=== PATIENT | male | born 1965 | race Caucasian/White ===

== ENCOUNTER 2019-02-15 18:14 | Inpatient (IN) | payer BC ==
[~2019-02-15 18:14] MED LIST: ISOVUE-370 76%-LOCM 1 ML ONE
[2019-02-15 18:50] LABS: #Eosinphils 0.4 thou/uL (0.0-0.7); #Lymphocytes 1.5 thou/uL (1.20-3.40); #Monocytes 0.6 thou/uL (0.11-0.59); #Neutrophils 4.3 thou/uL (1.40-6.50); %Basophils 0.3 % (0.0-1.0); %Eosinophils 5.6 % (0.0-10.0); %Lymphocytes 21.6 % (21.0-51.0); %Monocytes 8.4 % (0.0-10.0); %Neutrophils 64.1 % (42.0-75.0); Hemoglobin 13.4 g/dL (14.0-18.0); Mean Corpuscular HGB CONC 33.9 g/dL (32.0-36.0); Mean Corpuscular Hemoglobin 30.9 pg (27.0-31.0); Mean Platelet Volume 6.3 fL (7.4-10.4); Platelet Count 327 thou/uL (130-400); RBC Distribution Width 11.5 % (11.5-14.5); Red Blood Cell (RBC) Count 4.33 mill/uL (4.70-6.10); White Blood Cell (WBC) Count 6.7 thou/uL (4.8-10.8)
[2019-02-15 19:12] LABS: ALT (SGPT) 17 U/L (8-55); AST (SGOT) 15 U/L (5-34); Albumin 4.7 g/dL (3.5-5.0); Alkaline Phosphatase 67 U/L (40-150); Anion Gap 13 mmol/L (10-20); BUN (Urea Nitrogen) 12 mg/dL (8.4-25.7); Bilirubin, Total 0.7 mg/dL (0.2-1.2); CK (CPK) 145 U/L (30-200); Calc. Creatinine Clearance 0 mL/min (70-130); Calcium 9.8 mg/dL (7.8-10.44); Carbon Dioxide 28 mmol/L (22-29); Chloride 99 mmol/L (98-107); Estimated GFR-MDRD 76; Glucose 128 mg/dL (70-105); Lipase 34 U/L (8-78); Protein, Total 7.7 g/dL (6.0-8.3); Sodium 136 mmol/L (136-145)
--- NOTE | 2019-02-15 19:20 | RAD ---
FRONTAL RADIOGRAPH CHEST: 02/15/19 COMPARISON: None. HISTORY: Chest pain and neck pain. FINDINGS: Midline sternotomy wires are present. No pneumothorax, pleural fluid, focal consolidation, or alveol ar edema. IMPRESSION: No acute findings. POS: RAMONA
--- NOTE | 2019-02-15 20:40 | CT ---
CTA Angio Chest W WO Con 02/15/2019 12:00 AM Indication: Neck pain radiating to the chest; shortness of breath and dizziness Technique: Multiple CTA images were obtained of the thorax with IV contrast. 3D reformatted images were constructed from the raw data. Comparison: None Findings: Pulmonary arteries: No central or segmental pulmonary embolus is evident. Heart and Great Vessels: Normal appearing. Lungs:There is a 4.7 cm spiculated right suprahilar mass inducing postobstructive atelectasis of the posterior segment of the right upper lobe. There is moderate emphysema. There are numerous enlarged lymph nodes within the mediastinum. There is an enlarged left tracheobronchial lymph node measuring 1 .3 cm. There is a 1.5 cm AP window lymph node. There is a 1.3 center prevascular lymph node. There is an left anterior mediastinal lymph node measuring 1.3 cm. There is a right paratracheal lymph node measuring 2.1 cm. There is prominent thickening involving the right mainstem bronchus. Pleural space: Clear. Upper Abdomen: There is a hypodense mass within the right mid kidney that is incompletely visualized and characterized. Osseous Structures: No acute fracture or subluxation demonstrated. There is scattered degenerative a nd osteoarthritic change present. Midline sternotomy changes. Impression: 1. No central or segmental pulmonary embolus. 2. Right suprahilar spiculated mass with postobstructive atelectasis of the posterior segment of the right upper lobe. There is extensive mediastinal lymphadenopathy suspicious for malignant lymph node spread. 3. Moderate emphysema 4. Right renal mass incompletely characterized. A follow-up nonemergent CT of the abdomen and pelvis utilizing renal mass protocol is recommended for further characterization.
[2019-02-15] MEDS ORDERED: Aspirin Chewable 81 MG TAB ONE (22:21)
[2019-02-16] MEDS ORDERED: Ondansetron PF 4 MG/2 ML Vial IVP PRN (00:34)
[2019-02-16] MEDS ORDERED: Acetaminophen 325 MG TAB PO PRN (00:34)
[2019-02-16] MEDS ORDERED: Ondansetron ODT 4 MG TAB SL PRN (00:34)
[2019-02-16 00:35] LABS: Troponin I 0.011 ng/mL (< 0.028)
[2019-02-16 00:37] VITALS: BMI 21.8
[2019-02-16] MEDS: Sodium Chloride 0.9% 1,000 ML IV SCH ×3 (01:43→12:54)
[2019-02-16 03:17] LABS: Troponin I Less than 0.010 ng/mL (< 0.028)
--- NOTE | 2019-02-16 11:05 | NM ---
EXAM: CARDIAC SPECT HISTORY: Chest pain TECHNIQUE: A myocardial perfusion scan was performed using the single isotope 1 day protocol with yogi hnetium 99m sestamibi. [10 mCi] was injected intravenously for the rest exam followed by 30 mCi for the stress study. Pharmacologic stress with Lexiscan was monitored and interpreted by [facility] FINDINGS: Homogeneous tracer distribution is seen in the myocardial segments on stress and rest image s without fixed or reversible defects. Gated SPECT LVEF: 77% Wall motion exam: Normal IMPRESSION: Normal myocardial perfusion scan
[2019-02-16] MEDS ORDERED: Lidocaine 4% PF 5 ML AMP NEB SCH (12:15)
[2019-02-16] MEDS ORDERED: Dexamethasone 10 MG in Sodium Chloride 0.9% 50 ML IVPB SCH (12:15)
[2019-02-16] MEDS: methylPREDNISolone Sod Succ 40 MG VIAL IVP SCH ×3 (12:55→23:17)
--- NOTE | 2019-02-16 13:15 | CON ---
DATE OF CONSULTATION: HISTORY OF PRESENT ILLNESS: He is a 53-year-old gentleman, who was brought to the hospital with chest pain, shortness of breath, dizziness, right-sided neck pain, right-sided face pain, swelling of the eye on right side behind the ear and veins that were bruised found on the chest, passing out during coughing. All this symptoms is much. He went to see his [facility] physician in [place]. He was referred to a distribution coordinator and received several rounds of antibiotics, Cipro, Zithromax. Bat Person at [facility] ordered a sleep study on him. X-ray was taken, which is read as normal. Has been coughing some blood since August, which has been streaking in nature. He has lost some weight. He has smoked half pack a day off and on for a period of time, but has not smoked for any recently. Denies prior history of TB, pneumonia, or bronchial asthma. In fact, the patient states he has been healthy. He has no reason to see any physician. Takes no medication. PAST MEDICAL HISTORY: Diabetes, hypertension. PAST SURGICAL HISTORY: He had an ASD repair, hernia repair now. MEDICATIONS: Recently started some medicine includin. Trelegy inhaler. 2. Crestor 10. ALLERGIES: NONE. 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 FAMILY HISTORY: Unremarkable. REVIEW OF SYSTEMS: Otherwise, 10-point negative. PHYSICAL EXAMINATION: GENERAL: The patient is in no acute distress. Appears slightly cushingoid. VITAL SIGNS: Saturations are 95% on room air, temperature 98, pulse 61, respiratory rate 16, blood pressure 108/64. CHEST: Decreased breath sounds with some minimal wheezing. On the right side, there is some anterior chest wall venous stranding consistent with an SVC syndrome. Left side is unremarkable. CARDIAC: Normal S1 and S2. No gallops. ABDOMEN: No masses. LABORATORY DATA: White count 6000, H and H of 13 and 39, platelet count is normal. Lytes are normal. Liver function normal. IMAGING DATA: His chest x-ray showed previous sternotomy and right apical infiltrate. His CAT scan confirmed rather extensive abnormality. Findings consistent with SVC syndrome, suprahilar mass, postobstructive atelectasis, posterior segment extensive mediastinal adenopathy, and a 4.7 cm right suprahilar mass. 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 PLAN: Diagnostic bronchoscopy performed start Decadron, neb treatment, steroids. We will follow. Consultation note, 70 minutes, 50% direct patient care. Job ID: [id number]
--- NOTE | 2019-02-16 14:39 | HP ---
CHIEF COMPLAINT: Chest pain. HISTORY OF PRESENT ILLNESS: This is a 53-year-old gentleman with history of COPD in the past, seen by a concrete paving machine operator in the past, had workup done partially, presented to the emergency room with complaint of chest pain. ER physician evaluated the patient and admitted to the hospital for possible cardiac etiology. Incidentally, found that the patient had CT scan confirmed lung mass, evidence of atelectasis, there is a renal mass noted. The patient underwent a stress test this morning, which has ruled out for cardiac etiology. PAST MEDICAL HISTORY: As above. PAST SURGICAL HISTORY: Negative. MEDICATIONS: None. SOCIAL HISTORY: Does not smoke or drink alcohol. He used to smoke heavily. 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 ALLERGIES: NKDA. REVIEW OF SYSTEMS: CONSTITUTIONAL: Fatigue present. HEENT: The patient has evidence of right-sided facial numbness. Initially, it was thought to be Aguirre palsy. PULMONARY: Shortness of breath present. CARDIOVASCULAR: As above. NEUROLOGIC: As above. All the other systems reviewed and negative. PHYSICAL EXAMINATION: GENERAL: The patient is alert and oriented x3. Appears to be in mild distress from chest discomfort. VITAL SIGNS: Temperature 98.3, pulse 64, respirations 16, oxygen saturation 95, blood pressure 104/61. HEENT: MICAH. Atraumatic. Right-sided facial weakness present. NECK: Supple, engorged veins present. LUNGS: Clear to auscultation. Chest shows evidence of engorged veins. CARDIOVASCULAR SYSTEM: S1 and S2 heard. ABDOMEN: Soft. Bowel sounds present. Nontender and nondistended. EXTREMITIES: No cyanosis or calf tenderness. CENTRAL NERVOUS SYSTEM: Nonfocal. LABORATORY WORK: WBC 6.7, hemoglobin 13.4, hematocrit 39.4. Chemistry shows sodium 136, potassium 4.0, chloride 99, glucose 128, calcium at 9.8, AST 15, ALT 17. Troponin was within normal limits at 0.010. EKG normal sinus rhythm. The patient underwent CTA shows no central segmental pulmonary embolus, right suprahilar spiculated mass with postobstructive atelectasis of the posterior segment of the right upper lobe. There is extensive mediastinal lymphadenopathy suspicious for malignant lymph node spread, moderate emphysema noted, right renal mass and completely characterized. A chest x-ray was obtained shows midline sternotomy wires are present. No pneumothorax, pleural fluid, focal consolidation, or alveolar edema. IMPRESSION: 1. 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 2. Possible renal mass, cyst versus other etiology. In the past, the patient had ultrasound of the kidney as per the patient and it was thought to be cyst. PLAN: 1. The patient will be hospitalized and admitted. 2. We will start the patient on IV steroids, Solu-Medrol to release symptoms. 3. I personally spoke to Oncology on-call, Dr. Aponte, recommended to place in the hospital for immediate lung biopsy and possible further treatment plans. 4. I consulted Dr. Mancia for pulmonology bronchoscopy. 5. Continue current therapy until the clinical prognosis or progress made, and old records obtained, family was at the bedside, discussed at length and explained. Job ID: [id number]
[2019-02-16] MEDS ORDERED: Lidocaine 2% PF 5 ML VIAL ONE (16:41)
[2019-02-16] MEDS ORDERED: Fentanyl 250 MCG/5 ML VIAL ONE (16:48)
[2019-02-16] MEDS ORDERED: Midazolam HCl 2 mg/2 ml Vial ONE ×2 (16:48→17:32)
[2019-02-16] MEDS ORDERED: Midazolam HCl 5 mg/5 ml Vial ONE (16:52)
[2019-02-16] MEDS ORDERED: Lidocaine 1% (PF) 30 ML VIAL ONE ×2 (16:53→17:48)
[2019-02-16] MEDS ORDERED: Fentanyl 100 MCG/2 ML VIAL ONE ×2 (16:53→17:32)
[2019-02-16] MEDS ORDERED: EPINEPHrine 1 MG/10 ML Abboject SYRINGE ONE (17:31)
[2019-02-16] MEDS ORDERED: Benzocaine 20% Spray 60 ML CAN ONE ×2 (17:33→17:37)
[2019-02-16] MEDS ORDERED: Lidocaine 2% Jelly 5 ML TUBE ONE ×2 (17:33→17:44)
[2019-02-16] MEDS ORDERED: Regadenoson 0.4 MG/5 ML SYRINGE ONE (17:35)
[2019-02-16] MEDS ORDERED: Lidocaine 4% Topical Sol 50 ML BOT ONE (17:37)
[2019-02-16] MEDS ORDERED: Lidocaine 1% w/Epinephrine 1:100K 20 ML VIAL ONE (17:48)
[2019-02-16] MEDS ORDERED: Lidocaine 2% w/Epinephrine 1:200K 20 ML VIAL ONE (17:48)
[2019-02-16] MEDS: Mometasone 100 MCG HFA INHALER INH SCH (19:11)
--- NOTE | 2019-02-16 20:06 | CON ---
DATE OF CONSULTATION: REASON FOR CONSULTATION: Lung mass. HISTORY OF PRESENT ILLNESS: Mr. Ramirez is a 53-year-old gentleman, who presented to the hospital with shortness of breath, dizziness, and chest pain. He also had right facial numbness, facial droop, and neck pain for the last several months. He has been seen by multiple providers including primary care, pulmonology, and ENT. He has been on multiple rounds of antibiotics. In the emergency room, a CT angio of the chest and thorax showed a 4.7 cm spiculated right suprahilar mass that was causing postobstructive atelectasis of the right upper lobe. There is mediastinal lymphadenopathy. There was an enlarged left tracheobronchial lymph node measuring 1.3 cm. There was a right paratracheal lymph node measuring 2.1 cm. There was a hypodense mass in the right kidney. The patient had an abdominal ultrasound several weeks ago, which felt that this was a cyst. The patient has dizziness, frequent cough with hemoptysis. He has passed out once at home during a coughing spell. He has a history of smoking for approximately 30 years, quit about 3 years ago. PAST MEDICAL HISTORY: 1. Diabetes. 2. Hypertension. 3. Skin cancer. PAST SURGICAL HISTORY: 1. ASD repair. 2. Hernia repair. 3. Skin lesion removal. ALLERGIES: NO KNOWN DRUG ALLERGIES. HOME MEDICATIONS: 1. Inhalers. 2. Rosuvastatin daily. FAMILY HISTORY: His uncle had lung cancer. His grandfather had liver cancer. SOCIAL HISTORY: , lives with his spouse. A 30 pack-year history of smoking, quit 3 years ago. Social drinker. No illicit drug use. 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 REVIEW OF SYSTEMS: A 10-point review of systems is negative except for noted in HPI. PHYSICAL EXAMINATION: VITAL SIGNS: Temperature 98.6, pulse is 76, respiratory rate 16, BP is 118/69, and he is 94% on room air. GENERAL: This is a well-developed, well-nourished male, in no acute distress. HEENT: Normocephalic and atraumatic. Pupils are equal and reactive to light. NECK: Supple. CV: Regular rate and rhythm. LUNGS: Clear anterior. ABDOMEN: Soft and nontender. Bowel sounds are positive. EXTREMITIES: No clubbing, cyanosis, or edema. SKIN: He has eczema-like rash on his face. HEMATOLOGIC: He has dilated vessels on his left chest. No petechiae or purpura. NEUROLOGIC: Positive for right facial droop. PSYCHIATRIC: He is alert, oriented, and appropriate. PERTINENT LABORATORY DATA AND X-RAYS: Current WBCs are 6.7, hemoglobin 13.4, hematocrit 39.4, platelet count 324,000, 64% neutrophils, and 21% lymphocytes. Sodium is 136, potassium 4.0, chloride 99, CO2 is 28, BUN is 12, creatinine 1.03 , calcium 9.8. Bilirubin 0.7, AST is 15, ALT is 17, alkaline phosphatase is 67. Creatine kinase is 145. Troponin is negative. Serum total protein 7.7, albumin 4.7, globulin 3.0, and lipase 34. Radiology per HPI. ASSESSMENT: Right lung mass with mediastinal lymphadenopathy and superior vena cava syndrome. DISCUSSION: The patient is having a bronchoscopy today. He has been started on steroids. We will get a CT of his abdomen and pelvis tomorrow. He has a history of smoking, so this certainly could be small cell carcinoma. He will likely receive his first cycle of chemotherapy on this admission. Case was discussed with Dr. Aponte, who will follow. Thank you for the consult. Job ID: [id number] [facility]ITALJose
[2019-02-16] MEDS: Rosuvastatin 10 MG TAB PO SCH (21:12)
[2019-02-16 22:55] LABS: #Lymphocytes 0.5 thou/uL (1.20-3.40); #Monocytes 0.3 thou/uL (0.11-0.59); #Neutrophils 14.6 thou/uL (1.40-6.50); %Basophils 0.1 % (0.0-1.0); %Eosinophils 0.1 % (0.0-10.0); %Monocytes 2.1 % (0.0-10.0); %Neutrophils 94.8 % (42.0-75.0); Hemoglobin 13.2 g/dL (14.0-18.0); Mean Corpuscular HGB CONC 32.9 g/dL (32.0-36.0); Mean Corpuscular Hemoglobin 29.7 pg (27.0-31.0); Mean Corpuscular Volume 90.2 fL (78.0-98.0); Mean Platelet Volume 6.2 fL (7.4-10.4); Platelet Count 314 thou/uL (130-400); RBC Distribution Width 11.6 % (11.5-14.5); Red Blood Cell (RBC) Count 4.46 mill/uL (4.70-6.10); White Blood Cell (WBC) Count 15.4 thou/uL (4.8-10.8)
--- NOTE | 2019-02-16 23:01 | RAD ---
EXAM: CHEST ONE VIEW HISTORY: Tachycardia post bronchoscopy. COMPARISON: CTA chest on 02/15/2019. FINDINGS: There is masslike density in the right suprahilar region in a paramediastinal location. This correspo nds to mass seen within the right suprahilar location on recent CT examination. There is also mild prominence in the left paratracheal region likely due to combination of vascular structures with mild ly prominent lymph nodes seen on recent CT. Cardiac silhouette and pulmonary vasculature are within normal limits. There is stable mild elevation of the right hemidiaphragm. Left lung is clear. No pleural effusion or pneumothorax is identified. Median sternotomy wires are present. IMPRESSION: 1. No acute cardiopulmonary process. 2. Right suprahilar mass with prominence of the left paramediastinal structures shown to represent en larged prevascular space lymph nodes and mediastinal fat as well as vasculature on recent CT exam. 3. No pneumothorax or pleural effusion. 4. Elevation right hemidiaphragm.
--- NOTE | 2019-02-16 23:20 | PDOC.EVN ---
Event Note - Event Note Event Note: Nursing called for something to help the patient sleep; Reviewed VS and patient has been tachycardic since bronchoscopy. Asymptomatic. Repeat CBC showed no anemia, WBC count elevated in the setting of steroids. Repeat CXR showed no pneumo or other acute process. Will give the patient Benadryl and continue to monitor HR.
[2019-02-16] MEDS: diphenhydrAMINE 25 MG CAP PO SCH (23:48)
--- NOTE | 2019-02-17 05:10 | CON ---
DATE OF CONSULTATION: REASON FOR CONSULT: Need for chemotherapy access. HISTORY OF PRESENT ILLNESS: Mr. Ramirez is a 53-year-old man with recent issues including cough with occasional hemoptysis and shortness of breath and swelling on the right side of his face and headaches and pressure behind his eye as well as some spider veins on his chest. He came in to get this checked, and the nurse practitioner who saw him ordered a CTA of the chest because she was worried that he might have a blood clot causing his problems, and he was found to have a right lung mass with narrowing of the superior vena cava. He underwent bronchoscopy today and the suspicion is that he has small cell carcinoma. Dr. Aponte is waiting on the preliminary pathology reports, but wants to start chemotherapy this weekend and has requested MediPort for that purpose. The patient is otherwise healthy and has not seen a doctor for any other reason in recent years. He did have a colonoscopy about a year ago that was okay. PAST MEDICAL HISTORY: ASD, repaired as a child. PAST SURGICAL HISTORY: ASD repair as a child and inguinal hernia repair. FAMILY HISTORY: Noncontributory, except for lung cancer in an uncle. REVIEW OF SYSTEMS: Ten system review of systems is negative except per HPI, and the patient states that he is feeling a little bit worse since he had his bronchoscopy. ALLERGIES: HE HAS NO KNOWN DRUG ALLERGIES. SOCIAL HISTORY: The patient did smoke up until recently. Drinks socially. Does not use illicit drugs. PHYSICAL EXAMINATION: VITAL SIGNS: Slightly tachycardic at 108, heart rate 98.1, respirations 12, 94% saturation on 2 L nasal cannula, and blood pressure 129/72. GENERAL: Reveals a tired-looking man in no acute distress. He is not flushed or toxic. He is not jaundiced or icteric. He has a slight puffiness around the right eye and some spider veins on his lower chest. NECK: Supple without lymphadenopathy or thyroid nodules. HEART: Regular in its rate and rhythm without murmurs, rubs, or gallops. LUNGS: Clear to auscultation bilaterally, but diminished on the right compared to the left. ABDOMEN: Soft and nondistended. Minimally tender in the epigastrium. No palpable masses or hernias. EXTREMITIES: Warm and well perfused without edema. NEUROLOGIC: No focal deficits. PSYCHIATRIC: Alert, oriented, and appropriate. LABORATORY DATA: White count is mildly elevated at 15, hematocrit 40, and platelets 314. Electrolytes and LFTs are unremarkable, and troponins are normal. CT images are reviewed and I agree with the written report. The patient has some narrowing of the superior vena cava in the area of the hilar adenopathy, but the SVC is patent. The stenosis is just below the junction of the innominate. The patient has a 4.7 cm spiculated right suprahilar mass with postobstructive atelectasis of the posterior segment of the right upper lobe, multiple mediastinal lymph nodes including the left tracheobronchial lymph node and the left anterior mediastinal lymph node, and an incidentally noted right renal mass. ASSESSMENT: Likely right lung cancer. There is some extrinsic compression of the superior vena cava, but it is patent. Dr. Aponte has requested a MediPort. This may need to be placed into the most superior portion of the superior vena cava near the junction of the innominate vein since the superior vena cava is narrow below this level. As long as this is acceptable, we will plan to proceed with MediPort tomorrow, and if Dr. Aponte rather defer the MediPort until the SVC is more widely patent then this can be deferred, but the MediPort should still be functional at that level. Inherent risks of MediPort treatment were discussed with the patient and his . These include, but are not limited to, bleeding, infection, risks of anesthesia, hemothorax, pneumothorax, and need for other procedures. They understand accept these risks and wished to proceed. He has been posted for the OR for tomorrow. Job ID: [id number]
[2019-02-17] MEDS: methylPREDNISolone Sod Succ 40 MG VIAL IVP SCH ×4 (05:36→23:50)
[2019-02-17] MEDS: Sodium Chloride 0.9% 1,000 ML IV SCH (06:19)
[2019-02-17] MEDS: Mometasone 100 MCG HFA INHALER INH SCH ×2 (08:14→19:18)
[2019-02-17] MEDS ORDERED: Azelastine 137 MCG/Spray 30 ML NS PRN (09:00)
--- NOTE | 2019-02-17 09:59 | PDOC.MOPN ---
Interval History: Pt feeling ok today, but c/o neck pain and mild SOB, off/on Oxygen while I was in the room. - Vital Signs Vital Signs: Vital Signs (12 hours) Temp Pulse Resp BP Pulse Ox 02/17/19 08:17 98.0 F 88 16 132/71 94 L 02/17/19 03:30 98.8 F 94 12 122/68 100 02/16/19 23:29 96 02/16/19 23:28 98 02/16/19 23:14 98.1 F 108 H 12 129/72 94 L Weight Admit Weight 152 lb Weight 152 lb - Physical Exam General: Alert, Oriented x3, Cooperative, No acute distress HEENT: EOMI Lungs: Clear to auscultation, Normal air movement Cardiovascular: Regular rate, Normal S1, Normal S2 Abdomen: Soft, No tenderness Skin: No breakdown Neurological: Cranial nerves 3-12 NL (chest wall venous engorgement from SVC syndrome) Psych/Mental Status: Mental status NL, Mood NL - Labs Result Diagrams: 02/16/19 22:50 02/15/19 18:41 Lab results: Laboratory Results - last 24 hr 02/16/19 22:50: WBC 15.4 H, RBC 4.46 L, Hgb 13.2 L, Hct 40.2 L, MCV 90.2, MCH 29.7, MCHC 32.9, RDW 11.6, Plt Count 314, MPV 6.2 L, Neutrophils % 94.8 H, Lymphocytes % 3.0 L, Monocytes % 2.1, Eosinophils % 0.1, Basophils % 0.1, Neutrophils # 14.6 H, Lymphocytes # 0.5 L, Monocytes # 0.3, Eosinophils # 0.0, Basophils # 0.0 A/P - Problem (1) SVC syndrome Current Visit: Yes Code(s): I87.1 - COMPRESSION OF VEIN Status: Acute - Plan Plan: SVC Syndrome from right lung mass and extensive mediastinal LAD, biopsy yesterday pending results f/u lung biopsy - spoke to path, should be ready Tuesday: SCLC vs NSCLC, less likely lymphoma plan to start chemo Tuesday through mid-line cath as mediport will be held until SVC syndrome resolves MRI-Brain CT-A/P w/con tomorrow as he just got contrast 36hr ago
--- NOTE | 2019-02-17 10:58 | PDOC.HOSPP ---
- Subjective Encounter Date: 02/17/19 Encounter Time: 10:56 Subjective: the patient is depressed, the steroid helpnig the facial swelling - Objective Vital Signs & Weight: Vital Signs (12 hours) Temp Pulse Resp BP Pulse Ox 02/17/19 08:17 98.0 F 88 16 132/71 94 L 02/17/19 03:30 98.8 F 94 12 122/68 100 02/16/19 23:29 96 02/16/19 23:28 98 02/16/19 23:14 98.1 F 108 H 12 129/72 94 L Weight Admit Weight 152 lb Weight 152 lb I&O: 02/16/19 02/17/19 02/18/19 06:59 06:59 06:59 Intake Total 471 1080 Balance 471 1080 Result Diagrams: 02/16/19 22:50 02/15/19 18:41 ROS - Medication Medications: Active Medications Generic Name Dose Route Start Last Admin Trade Name Freq PRN Reason Stop Dose Admin Albuterol/Ipratropium 3 ml 02/16/19 13:00 02/17/19 08:15 Duoneb NEB Not Given [id number] CORINNE Sodium Chloride 1,000 mls @ 50 mls/hr 02/16/19 12:15 02/17/19 06:19 Normal Saline 0.9% IV 1,000 mls .Q20H CORINNE Administration Methylprednisolone Sodium Succinate 40 mg 02/16/19 12:00 02/17/19 05:36 Solu-Medrol IVP 40 mg Q6HR CORINNE Administration Mometasone Furoate 1 puff 02/16/19 18:30 02/17/19 08:14 Asmanex Hfa 100 Mcg INH Not Given BID-RT CORINNE Rosuvastatin Calcium 10 mg 02/16/19 21:00 02/16/19 21:12 Crestor PO 10 mg HS CORINNE Administration - Exam NAD, awake alert, ill appearing Eye: PERRL, anicteric sclera, scleral icterus ENT: normocephalic atraumatic, no oropharyngeal lesions, moist mucosa, dry oral mucosa Neck: supple, symmetric, no JVD, no thyromegaly, no lymphadenopathy, no carotid bruit, JVD Heart: RRR, no murmur, no gallops, no rubs, normal peripheral pulses, irregular , diminshed peripheral pulses, murmur present, II/IV, III/IV Respiratory: CTAB, no wheezes, no rales, no ronchi, normal chest expansion, no tachypnea, normal percussion, rales, rhonchi, tachypneic, wheezes Gastrointestinal: soft, non-tender, non-distended, normal bowel sounds, no palpable masses, no hepatomegaly, no splenomegaly, no bruit, no guarding, no rigidity, tender to palpation, distended, diminished bowl sounds, voluntary guarding Hosp A/P (1) Depressed Code(s): F32.9 - MAJOR DEPRESSIVE DISORDER, SINGLE EPISODE, UNSPECIFIED Status : Acute Qualifiers: Depression Type: reactive depression Qualified Code(s): F32.9 - Major depressive disorder, single episode, unspecified (2) Lung mass Code(s): R91.8 - OTHER NONSPECIFIC ABNORMAL FINDING OF LUNG FIELD Status: Acute (3) SVC syndrome Code(s): I87.1 - COMPRESSION OF VEIN Status: Acute - Plan plan discussed w/ family, protective services social worker (add restoril and anti depresant), out of bed/ambulate, DVT proph w/lovenox
[2019-02-17] MEDS ORDERED: Gadobenate Dimeglumine 529 MG/1 ML (20ML VIAL) ONE (11:17)
--- NOTE | 2019-02-17 12:07 | EKG ---
Test Reason : Blood Pressure : / mmHG Vent. Rate : 080 BPM Atrial Rate : 080 BPM P-R Int : 134 ms QRS Dur : 078 ms QT Int : 364 ms P-R-T Axes : 043 045 059 degrees QTc Int : 419 ms Sinus rhythm with Premature atrial complexes Nonspecific ST and T wave abnormality Abnormal ECG Confirmed by SHAW DE LEON, DEBBIE ([id number]), food expeditor GUSTABO DOVE ([id number]) on 02/17/2019 12:06:52 PM Referred By: Confirmed By:DEBBIE SQUIRES MD
--- NOTE | 2019-02-17 12:08 | EKG ---
Test Reason : Blood Pressure : / mmHG Vent. Rate : 084 BPM Atrial Rate : 084 BPM P-R Int : 134 ms QRS Dur : 078 ms QT Int : 374 ms P-R-T Axes : 034 -18 063 degrees QTc Int : 441 ms Normal sinus rhythm RSR' or QR pattern in V1 suggests right ventricular conduction delay Nonspecific T wave abnormality Abnormal ECG #2 Confirmed by DEBBIE SQUIRES MD ([id number]), editor school photograph GUSTABO DOVE ([id number]) on 02/17/2019 12:08:12 PM Referred By: Confirmed By:DEBBIE SQUIRES MD
--- NOTE | 2019-02-17 13:14 | PRG ---
DATE OF SERVICE: 02/17/2019 SUBJECTIVE: This morning, he is still coughing some blood. He is still short of breath. OBJECTIVE: VITAL SIGNS: Saturations are 90% on room air, temperature 98, pulse 88, blood pressure 130/71. CHEST: Decreased breath sounds. CARDIAC: Normal S1 and S2. No gallops. ABDOMEN: No masses. IMPRESSION: Superior vena cava syndrome secondary to extensive mediastinal right lung cancer. Surprisingly, left mainstem bronchus had extensive tumor sitting in it. PLAN: Await pathology. Otherwise, continue steroids, neb treatments, and supportive care. We will follow. Job ID: [id number]
--- NOTE | 2019-02-17 14:14 | MRI ---
BRAIN MRI WITH AND WITHOUT CONTRAST: HISTORY: Lung cancer. Evaluate for staging/metastases. COMPARISON: None. FINDINGS: Gradient echo sequence: No hemorrhage. Calvarium: Appropriate T1 marrow signal intensity. Midline brain parenchyma: Unremarkable. Cerebrum:Cortical najera-white matter differentiation is preserved. With regards to the cerebrum, no si gnificant T2 or FLAIR white matter hyperintensities. There is T2 and FLAIR hyperintensity in the right cerebellar hemisphere. Ventricles: No evidence of hydrocephalus. Sinuses and mastoid air cells: Extensive paranasal sinus mucosal disease. Diffusion: Central arterial flow is maintained. Absent restricted diffusion. Postcontrast images: Extensive peripherally enhancing lesions predominantly in the right cerebrum and cerebellum, as follows: Right thalamus 0.7 cm, right frontal lobe, near the vertex 0.6 cm, right temporal lobe 0.7 cm, right cerebellar hemisphere 0.8 x 1.5 cm, medial inferior right cerebellar prasad sphere 1.0 x 0.5 cm, posterior medial left cerebellar hemisphere 0.9 cm. IMPRESSION: Multifocal intracranial metastases as described above. Transcribed Date/Time: 02/17/2019 2:45 PM
--- NOTE | 2019-02-17 17:21 | PDOC.GSPN ---
Surgery Progress Note: Subj - Subjective Narrative: Patient feels about the same. He is still waiting for his pathology report which is not expected to be back before Tuesday. Right eye and cheek are still slightly swollen. I will continue to follow along to see how he responds to chemotherapy. We should be able to place his Mediport before his next round of chemotherapy, assuming his cancer responds well to the chemotherapy and his SVC syndrome resolves. Surgery Progress Note: Obj - Vital signs Vital signs: Vital Signs - Most Recent Temp Pulse Resp BP Pulse Ox 98.0 F 95 18 136/79 96 02/17/19 16:00 02/17/19 16:00 02/17/19 16:00 02/17/19 16:00 02/17/19 16:00 Surgery Progress Note: Results - Labs Result Diagrams: 02/16/19 22:50 02/15/19 18:41
[2019-02-17] MEDS: Rosuvastatin 10 MG TAB PO SCH (20:24)
[2019-02-17] MEDS: Enoxaparin Sodium 30 MG/0.3 ML SYRINGE SC SCH (20:24)
[2019-02-17] MEDS: Temazepam 15 MG CAP PO PRN (21:26)
[2019-02-18] MEDS: methylPREDNISolone Sod Succ 40 MG VIAL IVP SCH (06:09)
[2019-02-18 06:11] LABS: #Lymphocytes 0.7 thou/uL (1.20-3.40); #Monocytes 0.2 thou/uL (0.11-0.59); #Neutrophils 12.4 thou/uL (1.40-6.50); %Lymphocytes 5.5 % (21.0-51.0); %Monocytes 1.5 % (0.0-10.0); Hemoglobin 12.7 g/dL (14.0-18.0); Mean Corpuscular HGB CONC 32.7 g/dL (32.0-36.0); Mean Corpuscular Volume 91.8 fL (78.0-98.0); Mean Platelet Volume 6.5 fL (7.4-10.4); Platelet Count 342 thou/uL (130-400); RBC Distribution Width 11.7 % (11.5-14.5); Red Blood Cell (RBC) Count 4.23 mill/uL (4.70-6.10); White Blood Cell (WBC) Count 13.4 thou/uL (4.8-10.8)
[2019-02-18 06:31] LABS: Anion Gap 14 mmol/L (10-20); BUN (Urea Nitrogen) 10 mg/dL (8.4-25.7); Calc. Creatinine Clearance 107 mL/min (70-130); Calcium 9.8 mg/dL (7.8-10.44); Carbon Dioxide 24 mmol/L (22-29); Chloride 103 mmol/L (98-107); Estimated GFR-MDRD Greater than 90; Glucose 151 mg/dL (70-105); Potassium 4.2 mmol/L (3.5-5.1); Sodium 137 mmol/L (136-145)
[2019-02-18] MEDS: Mometasone 100 MCG HFA INHALER INH SCH ×2 (06:54→19:07)
[2019-02-18] MEDS: Enoxaparin Sodium 30 MG/0.3 ML SYRINGE SC SCH ×2 (08:31→21:45)
--- NOTE | 2019-02-18 10:26 | CT ---
ABDOMEN CT WITH CONTRAST PELVIC CT WITH COTNRAST: HISTORY: Lung mass. Examination performed for staging. COMPARISON: None. FINDINGS: ABDOMEN CT: Chronic changes in lung bases. Normal heart size. Visualized aorta has a normal caliber. No periaortic fat stranding. Portal vein is patent. Gallbladder is unremarkable. Ill-defined hypodensity in the liver, adjacent to the falciform ligament measuring 1.6 x 1.4 cm is fe lt to represent a focal area of fatty infiltration. The remainder of the hepatic parenchyma is unrem arkable. The spleen, pancreas, and adrenal glands have appropriate attenuation and enhancement. No gastrohepatic, retrocrural, or periportal lymphadenopathy. Small umbilical hernia containing mesenteric fat. No mesenteric mass, lymphadenopathy, free air, or free fluid. Symmetric enhancement of the kidneys. Bilaterally, no obstructive uropathy. Indeterminate hypodensi ties in the left and right middle cortex measuring 1.2 and 1.8 cm respectively. Gastric mucosa, duodenum, and multiple normal-caliber small bowel loops are identified. Ileocecal ju nction is normal. Normal caliber appendix. Scattered fecal material in a nondistended, nondilated c olon. Mucosal thickening of the sigmoid colon may be due to inadequate distention. Diverticulosis, without evidence of diverticulitis. CT PELVIS: The urinary bladder is unremarkable. Mild hypertrophy of the prostate gland with calcifications. No pelvic mass, lymphadenopathy, free air, or free fluid. No lytic or blastic lesions within the osseous structures. IMPRESSION: 1. Ill-defined hypodensity in the hepatic parenchyma, near the falciform ligament may represent foca l fatty infiltration. No enhancing masses in the liver. 2. Hypodensities in the left and right renal cortex, incompletely evaluated. Consider nonemergent r enal ultrasound to assess for what are presumed to be bilateral renal cortical cysts. Conversely, a renal mass protocol CT or abdomen MRI could be performed. 3. Diverticulosis, without evidence of diverticulitis. There is mucosal thickening involving the si gmoid colon which is presumed to be due to inadequate distention. Colonoscopy if clinically warrante d. POS: OFF
--- NOTE | 2019-02-18 11:30 | PDOC.MOPN ---
Interval History: Pt feeling better today, off Oxygen. He has been walking with any OCAMPO or dizziness. He wants to leave the hospital to visit his mother, however I told him this would not be advisable in his current state. - Vital Signs Vital Signs: Vital Signs (12 hours) Temp Pulse Resp BP BP Pulse Ox 02/18/19 07:52 98.1 F 107 H 16 122/71 93 L 02/18/19 06:58 96 02/18/19 06:57 101 H 16 96 02/18/19 06:54 101 H 16 96 02/18/19 03:49 98.0 F 85 16 111/55 L 94 L 02/18/19 03:40 97 02/17/19 23:53 98.3 F 95 12 123/75 97 Weight Admit Weight 152 lb Weight 152 lb - Physical Exam General: Alert, Oriented x3, Cooperative, No acute distress Lungs: Other (decreased right-sided BS) Cardiovascular: Other (tachycardic) Abdomen: Soft, No tenderness Skin: No significant lesion (venous dilatation on chest wall) Neurological: Cranial nerves 3-12 NL Psych/Mental Status: Mental status NL, Mood NL - Labs Result Diagrams: 02/18/19 05:56 02/18/19 05:56 Lab results: Laboratory Results - last 24 hr 02/18/19 05:56: WBC 13.4 H, RBC 4.23 L, Hgb 12.7 L, Hct 38.8 L, MCV 91.8, MCH 30.0, MCHC 32.7, RDW 11.7, Plt Count 342, MPV 6.5 L, Neutrophils % 93.0 H, Lymphocytes % 5.5 L, Monocytes % 1.5, Eosinophils % 0.0, Basophils % 0.0, Neutrophils # 12.4 H, Lymphocytes # 0.7 L, Monocytes # 0.2, Eosinophils # 0.0, Basophils # 0.0 02/18/19 05:56: Sodium 137, Potassium 4.2, Chloride 103, Carbon Dioxide 24, Anion Gap 14, BUN 10, Creatinine 0.80, Estimated GFR (MDRD) Greater than 90, Glucose 151 H, Calcium 9.8 - Radiology Interpretation MRI - brain report reviewed by me Additional Comment: 6 brain mets mostly right-sided, most subcentimeter, largest 1.[address] - Ab/Pelvis report reviewed by me Additional Comment: Likely kidney cysts, no mets A/P - Problem (1) SVC syndrome Current Visit: Yes Code(s): I87.1 - COMPRESSION OF VEIN Status: Acute (2) Brain metastases Current Visit: Yes Code(s): C79.31 - SECONDARY MALIGNANT NEOPLASM OF BRAIN Status: Acute - Plan Plan: 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
--- NOTE | 2019-02-18 12:40 | PRG ---
DATE OF SERVICE: 02/18/2019 SUBJECTIVE: This morning, he is better. He is less short of breath. OBJECTIVE: VITAL SIGNS: His saturations are 93% on room air, respiratory rate 16, temperature 98, blood pressure 127/81. CHEST: Decreased breath sounds. Minimal rhonchi. CARDIAC: Normal S1 and S2. No gallops. ABDOMEN: No masses. his MRI of brain shows multifocal metastasis. IMPRESSION: Metastatic cancer, still awaiting path; chronic obstructive pulmonary disease; and superior vena cava syndrome. PLAN: Await final path. Start chemo as soon as possible. Prognosis remains guarded. Job ID: [id number]
--- NOTE | 2019-02-18 13:13 | PRG ---
DATE OF SERVICE: 02/18/2019 SUBJECTIVE: The patient is seen and examined at bedside. He feels somewhat better. His appetite is decreased. He lost probably 10 pounds in the last few weeks. OBJECTIVE: VITAL SIGNS: Blood pressure is 145/86, pulse is 102, temperature is 97.5, respiratory rate is 16, O2 saturation 96% on room air. HEENT: His head is atraumatic and normocephalic. Pupils are responding to light properly. Sclerae are nonicteric. Conjunctivae are pinkish. Oral mucosa is moist. NECK: Swollen. There are few areas of dilated veins on his neck, small venules mainly. LUNGS: Clear. HEART: S1 and S2 normal. No S3. No S4. Somewhat tachycardic. ABDOMEN: Soft, nontender, nondistended. Bowel sounds are present. No organomegaly. EXTREMITIES: No clubbing, cyanosis, or edema. NEUROLOGIC: He is alert and oriented x3. There are no any motor or sensory deficits. Cranial nerves are intact. LABORATORY DATA: White count of 13.4, platelet count is 342, hemoglobin 12.7, hematocrit 38.8. Normal electrolytes. Normal kidney function. Normal calcium. Three sets of troponins within normal limits. IMPRESSION: 1. Superior venous cava syndrome, acute. 2. Brain metastasis. 3. Right lung mass with extensive mediastinal lymphadenopathy, status post biopsy on the February 16. PLAN: Histopathology will be ready by Tuesday and Dr. Aponte will make decision what kind of chemotherapy he will need. Also, he will probably go through a brain radiation for his metastasis in the brain and radiation oncologist will be consulted. For now, we will continue his current regimen, which includes Decadron 4 mg twice a day, sertraline for his depression, temazepam p.r.n. for insomnia, and DuoNeb. Job ID: [id number]
[2019-02-18] MEDS: Sodium Chloride 0.9% 1,000 ML IV SCH (15:12)
[2019-02-18] MEDS: Dexamethasone 4 MG TAB PO SCH (21:43)
[2019-02-18] MEDS: Rosuvastatin 10 MG TAB PO SCH (21:43)
[2019-02-18] MEDS: diphenhydrAMINE 25 MG CAP PO SCH (21:43)
[2019-02-18] MEDS: Temazepam 15 MG CAP PO PRN (21:45)
[2019-02-19 06:26] LABS: #Lymphocytes 0.9 thou/uL (1.20-3.40); #Monocytes 0.6 thou/uL (0.11-0.59); #Neutrophils 9.8 thou/uL (1.40-6.50); %Eosinophils 0.2 % (0.0-10.0); %Lymphocytes 7.7 % (21.0-51.0); %Neutrophils 87.1 % (42.0-75.0); Mean Corpuscular HGB CONC 32.3 g/dL (32.0-36.0); Mean Corpuscular Hemoglobin 29.5 pg (27.0-31.0); Mean Corpuscular Volume 91.3 fL (78.0-98.0); Mean Platelet Volume 6.7 fL (7.4-10.4); Platelet Count 352 thou/uL (130-400); RBC Distribution Width 11.8 % (11.5-14.5); White Blood Cell (WBC) Count 11.3 thou/uL (4.8-10.8)
[2019-02-19 06:43] LABS: Anion Gap 15 mmol/L (10-20); BUN (Urea Nitrogen) 13 mg/dL (8.4-25.7); Calc. Creatinine Clearance 109 mL/min (70-130); Calcium 9.7 mg/dL (7.8-10.44); Carbon Dioxide 25 mmol/L (22-29); Chloride 101 mmol/L (98-107); Estimated GFR-MDRD Greater than 90; Glucose 111 mg/dL (70-105); Potassium 4.4 mmol/L (3.5-5.1); Sodium 137 mmol/L (136-145)
--- NOTE | 2019-02-19 07:19 | OP ---
DATE OF PROCEDURE: 02/16/2019 PROCEDURE PERFORMED: Bronchoscopy with biopsy. INDICATION: Left lower lung mass and extensive mediastinal mass, rule out bronchogenic carcinoma. POSTBRONCHOSCOPY DIAGNOSIS: Left lower lung mass and extensive mediastinal mass, rule out bronchogenic carcinoma. DESCRIPTION OF PROCEDURE: After informed consent, the patient received DuoNeb plus 4 mL of 4% lidocaine. The right nostril was prepped with lidocaine. 2 mg of Versed and 50 of fentanyl were given to the procedure. The flexible video bronchoscope Olympus was then passed over the left nostril and pharynx and hypopharynx, and vocal cords were visualized, which were unremarkable. Entering the trachea, this was normal, but cathleen was markedly blunted, thickened. Entering the right lung, there was marked thickening of the right mainstem bronchus. Right upper lobe bronchus was narrowed, particularly the posterior segment. No obvious endobronchial disease was seen. The bronchus intermedius and right lower lobe bronchus were otherwise unremarkable. To my surprise, entering the left mainstem bronchus, there was a large mass on the medial wall of the mainstem bronchus nodular friable. Rest of the left lower lung was otherwise unremarkable. The right lung and the left lung were both lavaged with normal saline. Multiple biopsies from the left mainstem bronchus with nodular friable mass were done. There was some minimal bleeding, which was controlled with epinephrine 60 mL of [id number]. The patient tolerated the procedure well. Washings sent for cytology. Biopsies were sent to pathology. Job ID: [id number]
[2019-02-19] MEDS: Mometasone 100 MCG HFA INHALER INH SCH ×2 (07:27→19:14)
[2019-02-19] MEDS: Enoxaparin Sodium 30 MG/0.3 ML SYRINGE SC SCH ×2 (08:10→20:46)
[2019-02-19] MEDS: Dexamethasone 4 MG TAB PO SCH ×2 (08:11→20:39)
--- NOTE | 2019-02-19 09:58 | PRG ---
DATE OF SERVICE: SUBJECTIVE: Tells me this morning, he is doing better, less short of breath, less cough, less pain. OBJECTIVE: VITAL SIGNS: Saturations are 93% on 2 L, respiratory rate 16, temperature 98, and blood pressure 130/76. CHEST: No wheezing or crackles. CARDIAC: Normal S1 and S2. No gallops or masses. 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 He is on Decadron, supportive care, neb treatments, awaiting path. DISPOSITION: As per Oncology. Job ID: [id number]
--- NOTE | 2019-02-19 11:05 | PDOC.HOSPP ---
- Subjective Encounter Date: 02/19/19 Encounter Time: 11:03 Subjective: 53 y/o made admitted for evaluation and treatment of right lung mass found on CT chest done for evaluation of chest pain. S/p bronchoscopy with biopsy. pathology is awaited. No new problem. - Objective Vital Signs & Weight: Vital Signs (12 hours) Temp Pulse Resp BP Pulse Ox 02/19/19 08:00 93 L 02/19/19 07:59 98.1 F 95 16 133/76 93 L 02/19/19 07:28 88 16 95 02/19/19 07:27 88 16 95 02/19/19 00:07 98.1 F 80 16 105/69 95 Weight Admit Weight 152 lb Weight 152 lb I&O: 02/18/19 02/19/19 02/20/19 06:59 06:59 06:59 Intake Total 950 Balance 950 Result Diagrams: 02/19/19 05:51 02/19/19 05:51 ROS - Medication Medications: Active Medications Generic Name Dose Route Start Last Admin Trade Name Freq PRN Reason Stop Dose Admin Albuterol/Ipratropium 3 ml 02/16/19 13:00 02/19/19 07:28 Duoneb NEB 3 ml [id number] CORINNE Administration Dexamethasone 4 mg 02/18/19 21:00 02/19/19 08:11 Decadron PO 4 mg BID CORINNE Administration Enoxaparin Sodium 30 mg 02/17/19 21:00 02/19/19 08:10 Lovenox SC 30 mg 0900,2100 CORINNE Administration Mometasone Furoate 1 puff 02/16/19 18:30 02/19/19 07:27 Asmanex Hfa 100 Mcg INH 1 puff BID-RT CORINNE Administration Rosuvastatin Calcium 10 mg 02/16/19 21:00 02/18/19 21:43 Crestor PO 10 mg HS CORINNE Administration Sertraline HCl 50 mg 02/18/19 09:00 02/19/19 08:11 Zoloft PO 50 mg DAILY CORINNE Administration Sodium Chloride 10 ml 02/17/19 21:00 02/19/19 08:11 Flush - Normal Saline IVF 10 ml Q12HR CORINNE Administration Sodium Chloride 10 ml 02/17/19 11:01 02/17/19 19:15 Flush - Normal Saline IVF 10 ml PRN PRN Administration Saline Flush Temazepam 15 mg 02/17/19 10:54 02/18/19 21:45 Restoril PO 15 mg HSPRN PRN Administration Insomnia - Exam awake alert Eye: PERRL, anicteric sclera ENT: normocephalic atraumatic ENT - other findings: mild left facial edema Neck: supple Heart: RRR Respiratory: no ronchi, normal chest expansion Respiratory - other findings: fair air entry bilaterally with some transmitted sound Gastrointestinal: soft, non-tender, non-distended, normal bowel sounds Extremities: no cyanosis Neurological: CN's grossly intact, no weakness Neurological - other findings: right facial numbness Musculoskeletal: normal tone, normal strength, no muscle wasting Psychiatric: normal affect, A&O x 3 Hosp A/P (1) COPD (chronic obstructive pulmonary disease) Status: Acute (2) Chest pain Code(s): R07.9 - CHEST PAIN, UNSPECIFIED Status: Acute (3) Brain metastases Code(s): C79.31 - SECONDARY MALIGNANT NEOPLASM OF BRAIN Status: Acute (4) Lung mass Code(s): R91.8 - OTHER NONSPECIFIC ABNORMAL FINDING OF LUNG FIELD Status: Acute (5) SVC syndrome Code(s): I87.1 - COMPRESSION OF VEIN Status: Acute - Plan Bronchodilators as needed Awaiting Lung biopsy pathology continue other supportive care
[2019-02-19] MEDS: Acetaminophen 325 MG TAB PO PRN (14:47)
[2019-02-19] MEDS: Lorazepam 1 MG TAB PO PRN (14:48)
[2019-02-19] MEDS: Temazepam 15 MG CAP PO PRN (20:39)
[2019-02-19] MEDS: Rosuvastatin 10 MG TAB PO SCH (20:39)
[2019-02-20 05:40] LABS: #Lymphocytes 0.9 thou/uL (1.20-3.40); #Monocytes 0.5 thou/uL (0.11-0.59); #Neutrophils 8.2 thou/uL (1.40-6.50); %Basophils 0.4 % (0.0-1.0); %Eosinophils 0.1 % (0.0-10.0); %Lymphocytes 9.5 % (21.0-51.0); %Monocytes 5.4 % (0.0-10.0); %Neutrophils 84.6 % (42.0-75.0); Hemoglobin 13.2 g/dL (14.0-18.0); Mean Corpuscular HGB CONC 33.5 g/dL (32.0-36.0); Mean Corpuscular Hemoglobin 30.5 pg (27.0-31.0); Mean Corpuscular Volume 90.9 fL (78.0-98.0); Mean Platelet Volume 6.7 fL (7.4-10.4); Platelet Count 352 thou/uL (130-400); RBC Distribution Width 11.6 % (11.5-14.5); Red Blood Cell (RBC) Count 4.32 mill/uL (4.70-6.10); White Blood Cell (WBC) Count 9.7 thou/uL (4.8-10.8)
[2019-02-20 06:00] LABS: Anion Gap 14 mmol/L (10-20); BUN (Urea Nitrogen) 11 mg/dL (8.4-25.7); Calc. Creatinine Clearance 112 mL/min (70-130); Calcium 9.5 mg/dL (7.8-10.44); Carbon Dioxide 25 mmol/L (22-29); Chloride 100 mmol/L (98-107); Estimated GFR-MDRD Greater than 90; Glucose 123 mg/dL (70-105); Sodium 135 mmol/L (136-145)
[2019-02-20] MEDS: Mometasone 100 MCG HFA INHALER INH SCH (07:06)
[2019-02-20] MEDS: Enoxaparin Sodium 30 MG/0.3 ML SYRINGE SC SCH ×2 (08:51→21:02)
[2019-02-20] MEDS: Dexamethasone 4 MG TAB PO SCH ×2 (08:51→21:02)
[2019-02-20] MEDS: Lorazepam 1 MG TAB PO PRN ×2 (09:04→13:11)
--- NOTE | 2019-02-20 09:23 | PRG ---
DATE OF SERVICE: 02/20/2019 SUBJECTIVE: This morning, he is better. No cough. No shortness of breath. No pain. OBJECTIVE: VITAL SIGNS: Temperature 98, pulse 104, respiratory rate 18, saturations are 98% on room air, and blood pressure 123/78. HEENT: Facial swelling. CHEST: Decreased breath sounds. No wheezing. CARDIAC: Normal S1 and S2. No gallops. ABDOMEN: No masses. LABORATORY DATA: Unremarkable. 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 Family wants to go to [facility]. Meantime, I would continue hina Pulido treatments, supportive care. Job ID: [id number]
--- NOTE | 2019-02-20 11:03 | CON ---
DATE OF CONSULTATION: 02/20/2019 REASON FOR CONSULTATION: Mr. 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 I was asked to see him to discuss his options with radiation. HISTORY OF PRESENT ILLNESS: Mr. Ramirez has been having difficulty off and on for the past five months. He has seen several physicians for this including primary care and pulmonology and ENT. His symptoms have mainly been of some tightness in the chest, productive cough, including hemoptysis, dizziness, and lightheadedness when he coughs, shortness of breath, and more recently some swelling in the face and some appearance of veins forming on his chest wall. He apparently saw a power barker operator several weeks ago, who recommended a sleep study. They had concerns that this might be heart-related issues because of the tightness in his chest, and he subsequently came to the emergency room at [facility] last Tuesday. There he underwent a CT angiogram, which showed a 4.7 cm right upper lobe lung mass. There was also ipsilateral and contralateral mediastinal adenopathy. There was narrowing of the superior vena cava. He was admitted to the hospital for workup and evaluation. He underwent a bronchoscopy by Dr. Mancia on 02/16/2019. There was marked thickening of the right mainstem bronchus. The right upper lobe bronchus was narrowed. No endobronchial lesion was identified. However, in the left mainstem bronchus, there was a mass on the medial wall of the mainstem bronchus, which was nodular and friable. Biopsies and brushings were obtained. Pathology recently returned as a moderately differentiated adenocarcinoma of the lung. This was TTF-1 positive. He has had an MRI of the brain, which showed six small lesions consistent with brain metastasis. He had a CT of the abdomen and pelvis. This showed a small lesion in the liver that was felt to be consistent with fatty infiltration rather than metastasis, although this cannot be totally excluded. There was no other evidence of metastatic disease. He has seen Dr. Aponte in Medical Oncology and the recommendation is to start chemotherapy. I have been asked to see the patient to discuss his options with radiation. Presently, he reports that his breathing is doing fairly well. He denies any orthopnea. He is up walking around. He does have some mild facial swelling. His appetite has been decreased, and he has recently lost 10 pounds. He has been having the hiccups while here in the hospital. His only pain has been the tightness in his chest and some in his neck. He has no other areas of pain. He has no headaches , nausea, vomiting, focal weakness, or numbness. He voices no other complaints. PAST MEDICAL HISTORY: 1. Hypertension. 2. History of skin cancers, treated with surgery. 3. Status post ASD repair in 2011. 4. Status post right inguinal hernia repair. MEDICATIONS: 1. DuoNeb nebulizers. 2. Decadron. 3. Lovenox. 4. Ativan. 5. Crestor. 6. Zoloft. ALLERGIES: NO KNOWN MEDICAL ALLERGIES. SOCIAL HISTORY: He lives near [place] with his . He has a 30 pack-year history of smoking, but has not smoked cigarettes for three years. He drinks two to three alcoholic beverages a couple of times per month. He denies any drug use. 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 FAMILY HISTORY: His mother is still living at age 72 with MS. His father is still living at age 75 and is healthy. He had a maternal grandfather, who from metastatic lung cancer. He had a paternal uncle, who in his late 60s from lung cancer. REVIEW OF SYSTEMS: Twelve-point review of systems is otherwise negative. PHYSICAL EXAMINATION: VITAL SIGNS: Height 5 feet 10 inches, weight 152 pounds. Blood pressure is 123 /78, pulse is 104, respirations are 18, temperature is 98.2, O2 saturation is 95% on room air. CONSTITUTIONAL: He is alert, oriented, and in no apparent distress. He is well developed and well nourished. Karnofsky performance status is in 80%. EYES: Pupils equal, round, and reactive to light. Extraocular movements are intact. ENT: Oral cavity and oropharynx normal without lesion or erythema. Palate elevates symmetrically. Gingiva is intact. He does have some mild facial swelling. NECK: There is some mild jugular venous distention. No preauricular, submandibular, cervical, or supraclavicular adenopathy. No thyromegaly. Larynx midline. LUNGS: Breathing nonlabored. Clear to auscultation and percussion. CARDIOVASCULAR: Heart, regular rate and rhythm without murmur. No lower extremity edema. BACK: No tenderness on fist percussion of the spine. CHEST: Does reveal increased venous markings across his chest wall. LYMPHATIC: No axillary inguinal adenopathy. ABDOMEN: Bowel sounds present. Soft, nontender, nondistended, without mass or hepatosplenomegaly. Liver percusses to normal size. SKIN: Without rash or purpura. NEUROLOGIC: Cranial nerves 2 through 12 grossly intact. Motor strength is 5/5 in both upper and lower extremities in all muscle groups tested. Reflexes are normal and symmetrical. Gait is not tested. LABORATORY DATA: Again, pathology has been interpreted as a moderately differentiated adenocarcinoma of the lung. This was TTF-1 positive. CBC today revealed a white blood cell count of 9700 with a hemoglobin of 13.2, hematocrit of 39.3, and platelet count of 352,000. Chemistry group showed a sodium of 135. His glucose was 123. His creatinine was normal at 0.76. RADIOLOGIC DATA: CT angiogram of the chest, CT of the abdomen and pelvis, and MRI of the brain were all personally reviewed. CT angiogram shows a 4.7 cm right upper lobe/suprahilar lung mass. There is ipsilateral and contralateral mediastinal adenopathy. He has narrowing of the superior vena cava, although contrast does go through the severe vena cava. It is markedly narrowed in the mid chest region. CT of the abdomen shows a lesion in the liver that was felt to be fatty infiltration rather than metastasis. There is no other evidence of liver lesion. MRI of the brain shows six lesions, the largest being 1 cm throughout the cerebrum and cerebellum consistent with brain metastasis. There is minimal vasogenic edema. ASSESSMENT: Mr. Ramirez is a 53-year-old gentleman with a clinical stage IV, T2 N3 M1 adenocarcinoma of the right upper lobe of the lung with early superior vena cava syndrome and brain metastasis. His brain metastases are asymptomatic. He appears to be fairly stable with the superior vena cava syndrome at this point, but does have some venous engorgement from that . PLAN: I had a long discussion with Mr. Ramirez and his regarding his diagnosis, prognosis, prognostic factors, and treatment options. We discussed his diagnosis of lung cancer, the pathology, and staging. I did explain that he has stage IV disease, which is going to be very difficult to cure. We did discuss the superior vena cava syndrome and the brain metastasis. Again, the brain metastasis at this point seemed to be asymptomatic. He is having some symptoms from the superior vena cava syndrome. I explained that this is a semi-emergent situation for treatment. I have discussed the case with Dr. Aponte, who has also seen the patient. Dr. Aponte preferences to start him on chemotherapy. I would think that we should also start him in the next couple of days on radiation therapy to the chest in hopes of palliating his severe vena cava syndrome. Dr. Aponte would hold off on immunotherapy until after the radiation is completed. Because he would be getting chemotherapy, we would have to hold on whole-brain radiation therapy now because of concerns from neurotoxicity. Hopefully, once he starts the immunotherapy, this will help treat his brain metastasis, but additionally once his chemo is completed, we could treat him with whole-brain radiation therapy. Obviously, if he develops symptoms from his brain metastasis sooner, we could treat his whole brain with radiation earlier. Nevertheless, I would not favor doing whole-brain radiation therapy concurrently with chemotherapy. I do favor initiating the chest radiation therapy as mentioned previously. The logistics of radiation as well as the benefits and risk of treatment were discussed. We would plan an approximate 3- to 4-week course of radiation. The simulation and daily treatment procedure were discussed. Side effects would include, but not be limited to skin reaction, fatigue, lower blood counts, difficulty or pain with swallowing, weight loss, possible radiation pneumonitis, possible stricture of the esophagus, and rarely possible damage to any other structure, which receives radiation therapy. I did explain that if we give this concurrently with chemotherapy that this may increase his esophagitis symptoms. This would necessitate us going a little slower and more conventional with the radiation therapy than we might otherwise do. I did discuss with Dr. Aponte, the possibility of doing a short course of radiation to therapy to the chest and brain prior to initiating chemotherapy, but he did not favor waiting on the chemotherapy. All of this was discussed with Mr. Ramirez and his . Presently, we are in somewhat of a holding pattern. The patient and his are insistent that he be transferred to [facility] for evaluation. I am not certain if they would do an inpatient transfer. This is being worked on by the hospital team. If they do not do an inpatient transfer, I would be uncomfortable with him being discharged and see in [facility] as an outpatient as this may take several weeks for him to get an appointment. Given his superior vena cava syndrome, I think it maybe somewhat risky to wait several weeks to initiating any treatment. My preference would be to initiate treatment within the next several days. The patient and his do understand that. We will wait and see what happens in regard to [facility] and what Mr. Ramirez wants to do in terms of the radiation. If he decides to seek treatment here, then we will try to get that initiated within the next couple of days. Thank you for this interesting consultation. ADDENDUM: It is my understanding that inpatient transfer to [facility] was declined by [facility]. He is starting chemotherapy today. I recommended that patient start radiation therapy tomorrow and he is agreeable. He will likely try to get an opinion from [facility] as an outpatient. Job ID: [id number] MTDD
--- NOTE | 2019-02-20 14:30 | PDOC.MOPN ---
Interval History: Complains of hiccups - Vital Signs Vital Signs: Vital Signs (12 hours) Temp Pulse Resp BP BP Pulse Ox 02/20/19 13:13 84 16 02/20/19 08:25 98.2 F 104 H 18 123/78 95 02/20/19 08:00 95 02/20/19 06:56 80 16 02/20/19 04:24 98.2 F 76 16 132/65 95 Weight Admit Weight 152 lb Weight 152 lb - Physical Exam General: Alert, Oriented x3, No acute distress HEENT: Atraumatic, PERRLA, EOMI, Mucous membr. moist/pink Lungs: Clear to auscultation, Normal air movement Cardiovascular: Regular rate, Normal S1, Normal S2, No murmurs, Gallops, Rubs Abdomen: Normal bowel sounds, Soft, No tenderness, No hepatospenomegaly, No masses Extremities: No clubbing, No cyanosis, No edema, Normal pulses, No tenderness/ swelling Neurological: Normal gait, Normal speech, Strength at 5/5 X4 ext, Normal tone, Sensation intact, Reflexes 2+ - Labs Result Diagrams: 02/20/19 05:17 02/20/19 05:17 Lab results: Laboratory Results - last 24 hr 02/20/19 05:17: WBC 9.7, RBC 4.32 L, Hgb 13.2 L, Hct 39.3 L, MCV 90.9, MCH 30.5 , MCHC 33.5, RDW 11.6, Plt Count 352, MPV 6.7 L, Neutrophils % 84.6 H, Lymphocytes % 9.5 L, Monocytes % 5.4, Eosinophils % 0.1, Basophils % 0.4, Neutrophils # 8.2 H, Lymphocytes # 0.9 L, Monocytes # 0.5, Eosinophils # 0.0, Basophils # 0.0 02/20/19 05:17: Sodium 135 L, Potassium 4.0, Chloride 100, Carbon Dioxide 25, Anion Gap 14, BUN 11, Creatinine 0.76, Estimated GFR (MDRD) Greater than 90, Glucose 123 H, Calcium 9.5 Status: lab reviewed by me A/P - Problem (1) Adenocarcinoma of lung Current Visit: Yes Code(s): C34.90 - MALIGNANT NEOPLASM OF UNSP PART OF UNSP BRONCHUS OR LUNG Status: Acute (2) Brain metastases Current Visit: Yes Code(s): C79.31 - SECONDARY MALIGNANT NEOPLASM OF BRAIN Status: Acute (3) SVC syndrome Current Visit: Yes Code(s): I87.1 - COMPRESSION OF VEIN Status: Acute - Plan Plan: [facility] declined transfer as not higher level of care Plan to start Carboplatin/Alimta today XRT per Dr. Moore.
[2019-02-20] MEDS ORDERED: SODIUM CHLORIDE 0.9% IVPB SCH ×3 (15:45→19:15)
[2019-02-20] MEDS ORDERED: Dexamethasone 10 MG in Sodium Chloride 0.9% 50 ML IVPB SCH (15:45)
[2019-02-20] MEDS ORDERED: Palonosetron HCl 0.25 MG in Sodium Chloride 0.9% 50 ML IVPB SCH (15:45)
[2019-02-20] MEDS ORDERED: ETOPOSIDE IVPB SCH (15:45)
[2019-02-20] MEDS ORDERED: CARBOPLATIN IVPB SCH ×2 (15:45→19:15)
[2019-02-20 15:47] LABS: ALT (SGPT) 19 U/L (8-55); AST (SGOT) 14 U/L (5-34); Albumin 4.4 g/dL (3.5-5.0); Alkaline Phosphatase 59 U/L (40-150); Anion Gap 13 mmol/L (10-20); BUN (Urea Nitrogen) 10 mg/dL (8.4-25.7); Bilirubin, Total 0.4 mg/dL (0.2-1.2); Calc. Creatinine Clearance 112 mL/min (70-130); Calcium 9.6 mg/dL (7.8-10.44); Carbon Dioxide 27 mmol/L (22-29); Chloride 99 mmol/L (98-107); Estimated GFR-MDRD Greater than 90; Globulin 2.9 g/dL (2.4-3.5); Glucose 120 mg/dL (70-105); Potassium 4.1 mmol/L (3.5-5.1); Protein, Total 7.3 g/dL (6.0-8.3); Sodium 135 mmol/L (136-145); Uric Acid 4.3 mg/dL (3.5-7.2)
[2019-02-20 16:06] LABS: T4 7.9 ug/dL (4.87-11.72); Thyroid Stimulating Hormone 0.8225 uIU/mL (0.35-4.94)
--- NOTE | 2019-02-20 18:10 | PDOC.HOSPP ---
- Subjective Encounter Date: 02/20/19 Encounter Time: 08:09 Subjective: 53 y/o made admitted for evaluation and treatment of right lung mass found on CT chest done for evaluation of chest pain. S/p bronchoscopy with biopsy with pathology showing lung adenocarcinoma. Patient had requested transfer to [facility] and bed avialability is awaited. No new problem. - Objective Vital Signs & Weight: Vital Signs (12 hours) Temp Pulse Resp BP Pulse Ox 02/20/19 13:13 84 16 02/20/19 08:25 98.2 F 104 H 18 123/78 95 02/20/19 08:00 95 02/20/19 06:56 80 16 Weight Admit Weight 152 lb Weight 152 lb I&O: 02/19/19 02/20/19 02/21/19 06:59 06:59 06:59 Intake Total 950 Balance 950 Result Diagrams: 02/20/19 05:17 02/20/19 15:11 Hospitalist ROS - Medication Medications: Active Medications Generic Name Dose Route Start Last Admin Trade Name Freq PRN Reason Stop Dose Admin Acetaminophen 650 mg 02/19/19 14:41 02/19/19 14:47 Tylenol PO 650 mg Q6H PRN Administration Headache/Fever or Pain Albuterol/Ipratropium 3 ml 02/16/19 13:00 02/20/19 13:13 Duoneb NEB 3 ml [id number] CORINNE Administration Dexamethasone 4 mg 02/18/19 21:00 02/20/19 08:51 Decadron PO 4 mg BID CORINNE Administration Enoxaparin Sodium 30 mg 02/17/19 21:00 02/20/19 08:51 Lovenox SC 30 mg 0900,2100 CORINNE Administration Lorazepam 1 mg 02/17/19 10:54 02/20/19 13:11 Ativan PO 1 mg Q4H PRN Administration Anxiety/Agitation Rosuvastatin Calcium 10 mg 02/16/19 21:00 02/19/19 20:39 Crestor PO 10 mg HS CORINNE Administration Sertraline HCl 50 mg 02/18/19 09:00 02/20/19 08:51 Zoloft PO 50 mg DAILY CORINNE Administration Sodium Chloride 10 ml 02/17/19 21:00 02/20/19 08:51 Flush - Normal Saline IVF 10 ml Q12HR CORINNE Administration Sodium Chloride 10 ml 02/17/19 11:01 02/17/19 19:15 Flush - Normal Saline IVF 10 ml PRN PRN Administration Saline Flush Temazepam 15 mg 02/17/19 10:54 02/19/19 20:39 Restoril PO 15 mg HSPRN PRN Administration Insomnia - Exam General Appearance: awake alert Eye: anicteric sclera ENT: normocephalic atraumatic ENT - other findings: mild right facilal edema Neck - other findings: neck vein engorment noted Heart: RRR Respiratory: no wheezes, no ronchi, normal chest expansion, no tachypnea Respiratory - other findings: fair air entry bilaterally Gastrointestinal: soft, non-tender, non-distended, normal bowel sounds Extremities: no cyanosis, no edema Neurological: CN's grossly intact, no focal deficits Psychiatric: normal affect, A&O x 3 Hosp A/P (1) Adenocarcinoma of lung Code(s): C34.90 - MALIGNANT NEOPLASM OF UNSP PART OF UNSP BRONCHUS OR LUNG Status: Acute (2) SVC syndrome Code(s): I87.1 - COMPRESSION OF VEIN Status: Acute (3) Brain metastases Code(s): C79.31 - SECONDARY MALIGNANT NEOPLASM OF BRAIN Status: Acute (4) COPD (chronic obstructive pulmonary disease) Status: Acute (5) Chest pain Code(s): R07.9 - CHEST PAIN, UNSPECIFIED Status: Acute (6) Lung mass Code(s): R91.8 - OTHER NONSPECIFIC ABNORMAL FINDING OF LUNG FIELD Status: Acute - Plan Cancer treatment planned here while awaiting for transfer to [facility] Bronchodilators as needed continue other supportive care
[2019-02-20] MEDS: Rosuvastatin 10 MG TAB PO SCH (21:02)
[2019-02-20] MEDS: Baclofen 10 MG TAB PO PRN (23:45)
[2019-02-21] MEDS: ETOPOSIDE IVPB SCH ×2 (01:48→23:54)
[2019-02-21] MEDS: SODIUM CHLORIDE 0.9% IVPB SCH ×2 (01:48→23:54)
[2019-02-21 07:28] LABS: #Lymphocytes 0.9 thou/uL (1.20-3.40); #Monocytes 0.4 thou/uL (0.11-0.59); #Neutrophils 8.3 thou/uL (1.40-6.50); %Basophils 0.4 % (0.0-1.0); %Eosinophils 0.1 % (0.0-10.0); %Lymphocytes 9.2 % (21.0-51.0); %Monocytes 4.3 % (0.0-10.0); Hemoglobin 14.4 g/dL (14.0-18.0); Mean Corpuscular HGB CONC 33.4 g/dL (32.0-36.0); Mean Corpuscular Hemoglobin 30.6 pg (27.0-31.0); Mean Corpuscular Volume 91.7 fL (78.0-98.0); Mean Platelet Volume 6.2 fL (7.4-10.4); Platelet Count 391 thou/uL (130-400); RBC Distribution Width 11.5 % (11.5-14.5); White Blood Cell (WBC) Count 9.6 thou/uL (4.8-10.8)
[2019-02-21 07:46] LABS: Anion Gap 13 mmol/L (10-20); BUN (Urea Nitrogen) 10 mg/dL (8.4-25.7); Calc. Creatinine Clearance 103 mL/min (70-130); Carbon Dioxide 29 mmol/L (22-29); Chloride 102 mmol/L (98-107); Estimated GFR-MDRD Greater than 90; Glucose 129 mg/dL (70-105); Sodium 139 mmol/L (136-145)
--- NOTE | 2019-02-21 08:27 | PDOC.HOSPP ---
- Subjective Encounter Date: 02/21/19 Encounter Time: 08:26 Subjective: Seen and examined. No new problem. Started on Chemotherapy yesterday. Denied nausea, vomiting or fever. - Objective Vital Signs & Weight: Vital Signs (12 hours) Temp Pulse Resp BP BP Pulse Ox 02/21/19 08:20 82 20 97 02/21/19 07:06 97.7 F 78 16 132/72 94 L 02/21/19 03:07 97.6 F 83 16 143/89 H 95 02/20/19 23:51 99.0 F 75 16 115/61 95 Weight Admit Weight 152 lb Weight 152 lb Result Diagrams: 02/21/19 07:16 02/21/19 07:16 Hospitalist ROS - Medication Medications: Active Medications Generic Name Dose Route Start Last Admin Trade Name Freq PRN Reason Stop Dose Admin Acetaminophen 650 mg 02/19/19 14:41 02/19/19 14:47 Tylenol PO 650 mg Q6H PRN Administration Headache/Fever or Pain Albuterol/Ipratropium 3 ml 02/16/19 13:00 02/21/19 08:20 Duoneb NEB 3 ml [id number] CORINNE Administration Baclofen 5 mg 02/20/19 22:25 02/20/19 23:45 Lioresal PO 5 mg TID PRN Administration Hiccups Dexamethasone 4 mg 02/18/19 21:00 02/20/19 21:02 Decadron PO 4 mg BID CORINNE Administration Enoxaparin Sodium 30 mg 02/17/19 21:00 02/20/19 21:02 Lovenox SC 30 mg 0900,2100 CORINNE Administration Etoposide 186 mg/ Sodium 509.3 mls @ 509.3 mls/hr 02/21/19 01:00 02/21/19 01: 48 Chloride IVPB 02/23/19 12:00 509.3 mls WILLCALL CORINNE Administration Lorazepam 1 mg 02/17/19 10:54 02/20/19 13:11 Ativan PO 1 mg Q4H PRN Administration Anxiety/Agitation Rosuvastatin Calcium 10 mg 02/16/19 21:00 02/20/19 21:02 Crestor PO 10 mg HS CORINNE Administration Sertraline HCl 50 mg 02/18/19 09:00 02/20/19 08:51 Zoloft PO 50 mg DAILY CORINNE Administration Sodium Chloride 10 ml 02/17/19 21:00 02/20/19 21:03 Flush - Normal Saline IVF 10 ml Q12HR CORINNE Administration Sodium Chloride 10 ml 02/17/19 11:01 02/17/19 19:15 Flush - Normal Saline IVF 10 ml PRN PRN Administration Saline Flush Temazepam 15 mg 02/17/19 10:54 02/19/19 20:39 Restoril PO 15 mg HSPRN PRN Administration Insomnia - Exam General Appearance: awake alert Eye: anicteric sclera ENT: normocephalic atraumatic Neck: supple Heart: RRR Respiratory: no wheezes, no ronchi, no tachypnea Respiratory - other findings: good air entry bilaterally with some transmitted sound Gastrointestinal: soft, non-tender, non-distended, normal bowel sounds Extremities: no cyanosis, no edema Neurological: CN's grossly intact, no weakness, no focal deficits Psychiatric: normal affect, A&O x 3 Hosp A/P (1) Adenocarcinoma of lung Code(s): C34.90 - MALIGNANT NEOPLASM OF UNSP PART OF UNSP BRONCHUS OR LUNG Status: Acute (2) SVC syndrome Code(s): I87.1 - COMPRESSION OF VEIN Status: Acute (3) Brain metastases Code(s): C79.31 - SECONDARY MALIGNANT NEOPLASM OF BRAIN Status: Acute (4) COPD (chronic obstructive pulmonary disease) Status: Acute (5) Chest pain Code(s): R07.9 - CHEST PAIN, UNSPECIFIED Status: Acute (6) Lung mass Code(s): R91.8 - OTHER NONSPECIFIC ABNORMAL FINDING OF LUNG FIELD Status: Acute - Plan Continue steroid for brain mets Monitor CMP and CBC in view of chemotherapy commencement Bronchodilators as needed continue other supportive care
[2019-02-21] MEDS: Lorazepam 1 MG TAB PO PRN ×3 (08:32→17:00)
[2019-02-21] MEDS: Dexamethasone 4 MG TAB PO SCH ×2 (08:32→20:01)
[2019-02-21] MEDS: Enoxaparin Sodium 30 MG/0.3 ML SYRINGE SC SCH ×2 (08:33→20:01)
[2019-02-21] MEDS ORDERED: Cyanocobalamin 1000 MCG/ML VIAL SC SCH (09:15)
--- NOTE | 2019-02-21 09:33 | PRG ---
DATE OF SERVICE: 02/21/2019 SUBJECTIVE: This morning, he is awake, alert, and responsive. He is status post chemo. OBJECTIVE: VITAL SIGNS: Temperature 97, pulse 82, respiratory rate 16, saturations 97% on room air, blood pressure 132/72. CHEST: Decreased breath sounds in right lung. Left unremarkable. CARDIAC: Normal S1, S2. No gallops. ABDOMEN: No masses. IMPRESSION: Metastatic adenocarcinoma, status post chemotherapy. PLAN: Continue present chemotherapy, schedule for radiation. Disposition as per Oncology. Job ID: [id number]
[2019-02-21] MEDS: Folic Acid 1 MG TAB PO SCH (10:33)
[2019-02-21] MEDS: Baclofen 10 MG TAB PO PRN ×2 (12:29→20:30)
--- NOTE | 2019-02-21 13:41 | PDOC.MOPN ---
Interval History: Pt feeling ok today. Tolerated chemo well yesterday. C1D2 today, will receive VP16. Due for XRT simulation today. - Vital Signs Vital Signs: Vital Signs (12 hours) Temp Pulse Resp BP BP Pulse Ox 02/21/19 08:20 82 20 97 02/21/19 08:00 94 L 02/21/19 07:06 97.7 F 78 16 132/72 94 L 02/21/19 03:07 97.6 F 83 16 143/89 H 95 Weight Admit Weight 152 lb Weight 152 lb - Physical Exam General: Alert, Oriented x3, Cooperative, No acute distress HEENT: EOMI Lungs: Other (non-labored) Cardiovascular: Regular rate, Normal S1 Abdomen: Soft, No tenderness Neurological: Cranial nerves 3-12 NL Psych/Mental Status: Mental status NL, Mood NL - Labs Result Diagrams: 02/21/19 07:16 02/21/19 07:16 Lab results: Laboratory Results - last 24 hr 02/21/19 07:16: WBC 9.6, RBC 4.70, Hgb 14.4, Hct 43.1, MCV 91.7, MCH 30.6, MCHC 33.4, RDW 11.5, Plt Count 391, MPV 6.2 L, Neutrophils % 86.0 H, Lymphocytes % 9.2 L, Monocytes % 4.3, Eosinophils % 0.1, Basophils % 0.4, Neutrophils # 8.3 H , Lymphocytes # 0.9 L, Monocytes # 0.4, Eosinophils # 0.0, Basophils # 0.0 02/21/19 07:16: Sodium 139, Potassium 5.0, Chloride 102, Carbon Dioxide 29, Anion Gap 13, BUN 10, Creatinine 0.83, Estimated GFR (MDRD) Greater than 90, Glucose 129 H, Calcium 10.0 02/20/19 21:34: Lactate Dehydrogenase 148 02/20/19 21:34: Uric Acid 4.2 02/20/19 15:11: Thyroxine (T4) 7.9, TSH 3rd Generation 0.8225 02/20/19 15:11: Lactate Dehydrogenase 158 02/20/19 15:11: Sodium 135 L, Potassium 4.1, Chloride 99, Carbon Dioxide 27, Anion Gap 13, BUN 10, Creatinine 0.76, Estimated GFR (MDRD) Greater than 90, Glucose 120 H, Uric Acid 4.3, Calcium 9.6, Total Bilirubin 0.4, AST 14, ALT 19, Alkaline Phosphatase 59, Serum Total Protein 7.3, Albumin 4.4, Globulin 2.9, Albumin/Globulin Ratio 1.5 A/P - Problem (1) SVC syndrome Current Visit: Yes Code(s): I87.1 - COMPRESSION OF VEIN Status: Acute (2) Brain metastases Current Visit: Yes Code(s): C79.31 - SECONDARY MALIGNANT NEOPLASM OF BRAIN Status: Acute - Plan Plan: C1D2 of [id number]: SVC Syndrome from Adencoarcinoma of Right lung with extensive mediastinal LAD and multiple brain mets f/u lung panel on lung biopsy from 02/16/2019 Cont Carboplatin + VP16 through mid-line cath as mediport will be held until SVC syndrome resolves XRT simulation today: plan CCRT and then WBRT after chemotherapy as he is currently asymptomatic. Will likely change chemo to Carbo + Alimta + Keytruda after XRT
[2019-02-21] MEDS: Rosuvastatin 10 MG TAB PO SCH (20:01)
[2019-02-22 06:30] LABS: #Monocytes 0.6 thou/uL (0.11-0.59); #Neutrophils 8.3 thou/uL (1.40-6.50); %Basophils 0.1 % (0.0-1.0); %Eosinophils 0.2 % (0.0-10.0); %Lymphocytes 10.2 % (21.0-51.0); %Monocytes 5.6 % (0.0-10.0); %Neutrophils 83.9 % (42.0-75.0); Hemoglobin 13.8 g/dL (14.0-18.0); Mean Corpuscular HGB CONC 34.2 g/dL (32.0-36.0); Mean Corpuscular Hemoglobin 30.9 pg (27.0-31.0); Mean Corpuscular Volume 90.3 fL (78.0-98.0); Mean Platelet Volume 6.1 fL (7.4-10.4); Platelet Count 374 thou/uL (130-400); RBC Distribution Width 11.5 % (11.5-14.5); Red Blood Cell (RBC) Count 4.48 mill/uL (4.70-6.10); White Blood Cell (WBC) Count 9.9 thou/uL (4.8-10.8)
[2019-02-22 06:47] LABS: Anion Gap 12 mmol/L (10-20); BUN (Urea Nitrogen) 13 mg/dL (8.4-25.7); Calc. Creatinine Clearance 117 mL/min (70-130); Calcium 9.3 mg/dL (7.8-10.44); Carbon Dioxide 26 mmol/L (22-29); Chloride 99 mmol/L (98-107); Estimated GFR-MDRD Greater than 90; Glucose 109 mg/dL (70-105); Sodium 133 mmol/L (136-145)
--- NOTE | 2019-02-22 07:59 | PDOC.HOSPP ---
- Subjective Encounter Date: 02/22/19 Encounter Time: 07:55 Subjective: Seen and examined. 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 Started on Chemotherapy on 02/20 and radiatotherapy on 02/21. Denied nausea, vomiting or fever. - Objective Vital Signs & Weight: Vital Signs (12 hours) Temp Pulse Resp BP Pulse Ox 02/22/19 07:39 98.5 F 87 18 128/76 93 L 02/22/19 07:01 98 02/22/19 06:59 82 16 98 02/22/19 03:42 98.4 F 74 16 118/68 95 02/22/19 00:00 98.5 F 80 16 129/78 92 L 02/21/19 20:00 92 L Weight Admit Weight 152 lb Weight 152 lb I&O: 02/21/19 02/22/19 02/23/19 06:59 06:59 06:59 Intake Total 1920 Balance 1920 Result Diagrams: 02/22/19 06:21 02/22/19 06:21 Hospitalist ROS - Medication Medications: Active Medications Generic Name Dose Route Start Last Admin Trade Name Freq PRN Reason Stop Dose Admin Acetaminophen 650 mg 02/19/19 14:41 02/19/19 14:47 Tylenol PO 650 mg Q6H PRN Administration Headache/Fever or Pain Albuterol/Ipratropium 3 ml 02/16/19 13:00 02/22/19 06:59 Duoneb NEB 3 ml [id number] CORINNE Administration Baclofen 5 mg 02/20/19 22:25 02/21/19 20:30 Lioresal PO 5 mg TID PRN Administration Hiccups Cyanocobalamin 1,000 mcg 02/21/19 09:15 02/21/19 09:59 Vitamin B-12 SC 02/22/19 09:16 1,000 mcg WILLCALL CORINNE Administration Dexamethasone 4 mg 02/18/19 21:00 02/21/19 20:01 Decadron PO 4 mg BID CORINNE Administration Enoxaparin Sodium 30 mg 02/17/19 21:00 02/21/19 20:01 Lovenox SC 30 mg 0900,2100 CORINNE Administration Folic Acid 1 mg 02/22/19 09:00 02/21/19 10:33 Folvite PO 1 mg DAILY CORINNE Administration Etoposide 186 mg/ Sodium 509.3 mls @ 509.3 mls/hr 02/21/19 01:00 02/21/19 23: 54 Chloride IVPB 02/23/19 12:00 509.3 mls WILLCALL CORINNE Administration Lorazepam 1 mg 02/17/19 10:54 02/21/19 17:00 Ativan PO 1 mg Q4H PRN Administration Anxiety/Agitation Rosuvastatin Calcium 10 mg 02/16/19 21:00 02/21/19 20:01 Crestor PO 10 mg HS CORINNE Administration Sertraline HCl 50 mg 02/18/19 09:00 02/21/19 08:32 Zoloft PO 50 mg DAILY CORINNE Administration Sodium Chloride 10 ml 02/17/19 21:00 02/21/19 20:02 Flush - Normal Saline IVF 10 ml Q12HR CORINNE Administration Sodium Chloride 10 ml 02/17/19 11:01 02/17/19 19:15 Flush - Normal Saline IVF 10 ml PRN PRN Administration Saline Flush Temazepam 15 mg 02/17/19 10:54 02/19/19 20:39 Restoril PO 15 mg HSPRN PRN Administration Insomnia - Exam General Appearance: awake alert Eye: anicteric sclera ENT: normocephalic atraumatic, moist mucosa Neck: supple, symmetric Heart: RRR, no murmur Respiratory: no wheezes, no ronchi, normal chest expansion, no tachypnea Gastrointestinal: soft, non-tender, non-distended, normal bowel sounds Extremities: no cyanosis, no edema Neurological: CN's grossly intact, no weakness, no focal deficits, no new deficit Musculoskeletal: normal tone, normal strength, no muscle wasting Psychiatric: normal affect, A&O x 3 Hosp A/P (1) Adenocarcinoma of lung Code(s): C34.90 - MALIGNANT NEOPLASM OF UNSP PART OF UNSP BRONCHUS OR LUNG Status: Acute (2) SVC syndrome Code(s): I87.1 - COMPRESSION OF VEIN Status: Acute (3) Brain metastases Code(s): C79.31 - SECONDARY MALIGNANT NEOPLASM OF BRAIN Status: Acute (4) COPD (chronic obstructive pulmonary disease) Status: Acute (5) Chest pain Code(s): R07.9 - CHEST PAIN, UNSPECIFIED Status: Acute (6) Lung mass Code(s): R91.8 - OTHER NONSPECIFIC ABNORMAL FINDING OF LUNG FIELD Status: Acute - Plan Continue steroid for brain mets Getting chemotherapy and radiotherapy Bronchodilators as needed continue other supportive care
[2019-02-22] MEDS: Dexamethasone 4 MG TAB PO SCH ×2 (08:38→20:46)
[2019-02-22] MEDS: Folic Acid 1 MG TAB PO SCH (08:38)
[2019-02-22] MEDS: Enoxaparin Sodium 30 MG/0.3 ML SYRINGE SC SCH ×2 (08:39→20:46)
[2019-02-22] MEDS: Lorazepam 1 MG TAB PO PRN (08:40)
--- NOTE | 2019-02-22 10:14 | PDOC.MOPN ---
Interval History: oxygen helps with hiccups. no pain. - Vital Signs Vital Signs: Vital Signs (12 hours) Temp Pulse Resp BP Pulse Ox 02/22/19 07:39 98.5 F 87 18 128/76 93 L 02/22/19 07:01 98 02/22/19 06:59 82 16 98 02/22/19 03:42 98.4 F 74 16 118/68 95 02/22/19 00:00 98.5 F 80 16 129/78 92 L Weight Admit Weight 152 lb Weight 152 lb - Physical Exam General: Alert, Oriented x3, No acute distress HEENT: Atraumatic, PERRLA, EOMI, Mucous membr. moist/pink Lungs: Clear to auscultation Cardiovascular: Regular rate Abdomen: Normal bowel sounds Extremities: No clubbing Skin: No rashes, No breakdown, No significant lesion Neurological: Normal speech Psych/Mental Status: Mental status NL - Labs Result Diagrams: 02/22/19 06:21 02/22/19 06:21 Lab results: Laboratory Results - last 24 hr 02/22/19 06:21: WBC 9.9, RBC 4.48 L, Hgb 13.8 L, Hct 40.4 L, MCV 90.3, MCH 30.9 , MCHC 34.2, RDW 11.5, Plt Count 374, MPV 6.1 L, Neutrophils % 83.9 H, Lymphocytes % 10.2 L, Monocytes % 5.6, Eosinophils % 0.2, Basophils % 0.1, Neutrophils # 8.3 H, Lymphocytes # 1.0 L, Monocytes # 0.6 H, Eosinophils # 0.0, Basophils # 0.0 02/22/19 06:21: Sodium 133 L, Potassium 4.0, Chloride 99, Carbon Dioxide 26, Anion Gap 12, BUN 13, Creatinine 0.73, Estimated GFR (MDRD) Greater than 90, Glucose 109 H, Calcium 9.3 Status: lab reviewed by me A/P - Problem (1) Adenocarcinoma of lung Current Visit: Yes Code(s): C34.90 - MALIGNANT NEOPLASM OF UNSP PART OF UNSP BRONCHUS OR LUNG Status: Acute (2) Brain metastases Current Visit: Yes Code(s): C79.31 - SECONDARY MALIGNANT NEOPLASM OF BRAIN Status: Acute (3) SVC syndrome Current Visit: Yes Code(s): I87.1 - COMPRESSION OF VEIN Status: Acute - Plan Plan: C1D3 of [id number]: SVC Syndrome from Adencoarcinoma of Right lung with extensive mediastinal LAD and multiple brain mets f/u lung panel on lung biopsy from 02/16/2019 Cont Carboplatin + VP16 through mid-line cath as mediport will be held until SVC syndrome resolves continue CCRT and then WBRT after chemotherapy as he is currently asymptomatic. Will likely change chemo to Carbo + Alimta + Keytruda after XRT
--- NOTE | 2019-02-22 10:52 | PRG ---
DATE OF SERVICE: 02/22/2019 SUBJECTIVE: This morning, offers no complaints. No shortness of breath. No chest pain. He looks much improved. Less facial swelling. OBJECTIVE: VITAL SIGNS: Temperature is 98, pulse 77, respirations 18, saturations 98% on room air, and blood pressure 120/76. CHEST: No wheezing or crackles. CARDIAC: Normal S1 and S2. No gallops. IMPRESSION: Status post chemoradiation for adenocarcinoma extensive, central nervous system metastases. Family wanted out of hospital DNR form which has signed. Continued radiation and chemotherapy followed by Oncology, follow while in the hospital. Job ID: [id number]
[2019-02-22] MEDS: Baclofen 10 MG TAB PO PRN ×2 (13:59→23:07)
[2019-02-22] MEDS ORDERED: Sodium Chloride 0.65% Nasal 44 ML BOT EA NARE PRN (17:05)
[2019-02-22] MEDS: Rosuvastatin 10 MG TAB PO SCH (20:46)
[2019-02-22] MEDS: Acetaminophen 325 MG TAB PO PRN (20:46)
[2019-02-22] MEDS: ETOPOSIDE IVPB SCH (23:03)
[2019-02-22] MEDS: SODIUM CHLORIDE 0.9% IVPB SCH (23:03)
[2019-02-23] MEDS: Dexamethasone 4 MG TAB PO SCH (08:54)
[2019-02-23] MEDS: Folic Acid 1 MG TAB PO SCH (08:54)
[2019-02-23] MEDS: Enoxaparin Sodium 30 MG/0.3 ML SYRINGE SC SCH (08:55)
[2019-02-23 09:32] LABS: ALT (SGPT) 22 U/L (8-55); AST (SGOT) 11 U/L (5-34); Albumin 4.5 g/dL (3.5-5.0); Alkaline Phosphatase 57 U/L (40-150); Anion Gap 11 mmol/L (10-20); BUN (Urea Nitrogen) 12 mg/dL (8.4-25.7); Calc. Creatinine Clearance 109 mL/min (70-130); Calcium 9.4 mg/dL (7.8-10.44); Carbon Dioxide 30 mmol/L (22-29); Chloride 96 mmol/L (98-107); Estimated GFR-MDRD Greater than 90; Globulin 2.9 g/dL (2.4-3.5); Glucose 111 mg/dL (70-105); Potassium 4.4 mmol/L (3.5-5.1); Protein, Total 7.4 g/dL (6.0-8.3); Sodium 133 mmol/L (136-145)
--- NOTE | 2019-02-23 12:24 | PDOC.EVN ---
Event Note - Event Note Event Note: Discharge summary dictated. #[id number]
--- NOTE | 2019-02-23 13:04 | PDOC.MOPN ---
Interval History: feels well, no nausea, diarrhea - Vital Signs Vital Signs: Vital Signs (12 hours) Temp Pulse Resp BP Pulse Ox 02/23/19 12:00 98.0 F 87 16 128/75 93 L 02/23/19 07:51 98.2 F 93 16 114/72 92 L 02/23/19 07:49 98.2 F 93 16 114/72 92 L 02/23/19 07:40 70 12 02/23/19 04:00 98.6 F 75 16 120/69 96 Weight Admit Weight 152 lb Weight 152 lb - Physical Exam General: Alert, Oriented x3, No acute distress HEENT: Atraumatic, PERRLA, EOMI, Mucous membr. moist/pink Lungs: Clear to auscultation, Normal air movement Cardiovascular: Regular rate, Normal S1, Normal S2, No murmurs, Gallops, Rubs Abdomen: Normal bowel sounds, Soft, No tenderness, No hepatospenomegaly, No masses Extremities: No clubbing, No cyanosis, No edema, Normal pulses, No tenderness/ swelling Skin: No rashes, No breakdown, No significant lesion Neurological: Normal gait, Normal speech, Strength at 5/5 X4 ext, Normal tone, Sensation intact, Cranial nerves 3-12 NL, Reflexes 2+ Psych/Mental Status: Mental status NL, Mood NL - Labs Result Diagrams: 02/22/19 06:21 02/23/19 09:03 Lab results: Laboratory Results - last 24 hr 02/23/19 09:03: Sodium 133 L, Potassium 4.4, Chloride 96 L, Carbon Dioxide 30 H , Anion Gap 11, BUN 12, Creatinine 0.78, Estimated GFR (MDRD) Greater than 90, Glucose 111 H, Calcium 9.4, Total Bilirubin 1.0, AST 11, ALT 22, Alkaline Phosphatase 57, Serum Total Protein 7.4, Albumin 4.5, Globulin 2.9, Albumin/ Globulin Ratio 1.6 Status: lab reviewed by me A/P - Problem (1) Adenocarcinoma of lung Current Visit: Yes Code(s): C34.90 - MALIGNANT NEOPLASM OF UNSP PART OF UNSP BRONCHUS OR LUNG Status: Acute (2) Brain metastases Current Visit: Yes Code(s): C79.31 - SECONDARY MALIGNANT NEOPLASM OF BRAIN Status: Acute (3) SVC syndrome Current Visit: Yes Code(s): I87.1 - COMPRESSION OF VEIN Status: Acute - Plan Plan: Cycle 1 chemo completed Home with antiemetics Follow-up 03/13/19 at 830 for cycle 2 chemo, MD visit call for fever >101
--- NOTE | 2019-02-23 13:38 | PRG ---
DATE OF SERVICE: 02/23/2019 SUBJECTIVE: Vaibhav Ramirez underwent chemo and radiation. Less cough. Less shortness of breath. OBJECTIVE: VITAL SIGNS: Saturations are 92% on room air, respirations 16, temperature 98, blood pressure 114/72. CHEST: Decreased breath sounds. No wheezing. CARDIAC: Normal S1 and S2. No gallops. ABDOMEN: No masses. 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 PLAN: Continue present treatment. Disposition as per Oncology. We will follow. Job ID: [id number]
[2019-02-23 16:04] VITALS: BP 137/74; TEMP 98.8
--- NOTE | 2019-02-24 11:28 | DIS ---
DATE OF ADMISSION: 02/16/2019 DATE OF DISCHARGE: 02/23/2019 PRIMARY CARE PHYSICIAN: Unknown. DISCHARGE DIAGNOSES: 1. Metastatic adenocarcinoma of the lungs. 2. Brain metastasis. 3. Superior vena cava syndrome. 4. Chronic obstructive pulmonary disease without acute exacerbation. 5. Chest pain. CONSULTS: 1. Pulmonary and Critical Care. 2. Hematology and Oncology. 3. General Surgery. 4. Radiation oncologist. PROCEDURES PERFORMED: During this hospitalization bronchoscopy with biopsy. HOSPITAL COURSE: A 53-year-old male with known history of COPD, who was admitted with chest pain. Evaluation with CT scan of the chest showed right lung mass. Acute myocardial infarction was ruled out with serial troponin, and the patient subsequently had stress test, which was negative for reversible ischemia. Pulmonary consult was obtained, and the patient subsequently had bronchoscopy, which showed lung mass and biopsy was performed. Pathology came back with adenocarcinoma of the lungs. Further evaluation with MRI showed mental status to the brain. The patient initially wanted to be transferred to [facility], but when this was not much realizing and following discussion with Hematology-Oncology, he was started on chemotherapy. He also was seen by radiation oncologist and was also started on radiation therapy. The patient was found to have right facial swelling as well as neck swelling, which was consistent with superior vena cava syndrome. With commencement of chemotherapy and radiation therapy, facial swelling and neck swelling subsided. The patient remained stable and was subsequently discharged home to continue outpatient therapy. PHYSICAL EXAMINATION: VITAL SIGNS: Temperature 98.0, pulse 87, respiratory rate 16, SpO2 of 93% on room air, blood pressure is 128/75. GENERAL: Comfortable middle-aged male in no obvious distress. Afebrile. Anicteric. Acyanotic. HEENT: Normocephalic, atraumatic. Regressing right-sided facial swelling noted. CARDIOVASCULAR: Regular rhythm and rate with normal heart sounds 1 and 2. RESPIRATORY: Good air entry bilateral, except right upper lobe zone. There is no obvious crackle or rhonchi appreciated. GI: Full, soft, nontender, nondistended with normal bowel sounds. EXTREMITIES: Grossly normal looking atraumatic with no edema or erythema. Distal pulses are palpable. 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 Cranial nerves 2 through 12 are grossly intact. The patient moves all extremities. The patient is ambulant. DISCHARGE DISPOSITION: Home. DISCHARGE CONDITION: Improving. DISCHARGE MEDICATIONS: Please see discharge med rec. FOLLOWUP: 1. With PCP in 7 days. 2. With copper plater in 2 to 3 weeks. 3. With Hematology-Oncology as well as with radiation oncologist. TIME SPENT: This discharge took more than 33 minutes. Job ID: [id number]
== END 2019-02-23 16:29 | disposition home or self-care (01) | DRG 167 ==
LOC: ERS 18:14 → OBSVTOIN 02-16 00:32 → 2SW 02-16 00:32 → ONC 02-16 18:30
PROVIDERS: ADMIT Hospitalist; ATTEND Hospitalist
PROC: 0B9M8ZZ Drainage of Bilateral Lungs, Via Natural or Artificial Opening Endoscopic (ICD-10-PCS; principal; 2019-02-16)
PROC: 0BB78ZX Excision of Left Main Bronchus, Via Natural or Artificial Opening Endoscopic, Diagnostic (ICD-10-PCS; 2019-02-16)
DX: C34.11 Malignant neoplasm of upper lobe, right bronchus or lung (principal); I87.1 Compression of vein; C79.31 Secondary malignant neoplasm of brain; J44.9 Chronic obstructive pulmonary disease, unspecified; E11.9 Type 2 diabetes mellitus without complications; I10 Essential (primary) hypertension; R59.1 Generalized enlarged lymph nodes; F32.9 Major depressive disorder, single episode, unspecified; Z98.890 Other specified postprocedural states; Z85.828 Personal history of other malignant neoplasm of skin
CPT/HCPCS: 36415; 70553; 71045; 71275; 74177; 77014; 77293; 77295; 77300; 77334; 77336; 77412; 77417; 78452; 80048; 80053; 82550; 83615; 83690; 84436; 84443; 84484; 84550; 85025; 88104; 88112; 88305; 88312; 88341; 88342; 93005; 93017; 94640; 94664; 94760; 99152; 99153; A9500; A9577; J0171; J1100; J1650; J2001; J2250; J2469; J2785; J2920; J3010; J3420; J7050; J7620; J8540; J9045; J9181; Q0162; Q0163; Q9966

== ENCOUNTER 2019-02-27 12:25 | Outpatient (CLI) | payer BC ==
--- NOTE | 2019-02-27 14:35 | ULT ---
VENOUS DOPPLER ULTRASOUND OF THE RIGHT UPPER EXTREMITY: HISTORY: Right arm edema. Lung cancer. TECHNIQUE: Olson scale ultrasound with color flow and spectral Doppler imaging of the deep veins of the right upp er extremity is performed. There is decreased flow due to intraluminal thrombus in the right internal jugular vein and decreased flow in the right subclavian vein. An intraluminal thrombus is not definitely seen in the right sub clavian vein. There is good flow, compression, and normal waveforms in the right axillary, brachial, basilic, radia l, and ulnar veins. There is absence of compression due to intraluminal thrombus in the right cephal ic vein at the level of the antecubital fossa. IMPRESSION: Deep vein thrombosis in the right internal jugular and probably subclavian veins. Discussed over the telephone with Dr. Frandy Moore at 1:16 p.m. KIMBERLEY MOSES POS: ISAIAS
== END 2019-02-27 12:26 | disposition home or self-care (01) ==
LOC: ULT 12:25
PROVIDERS: ATTEND Radiology Radiation Oncology
DX: C34.11 Malignant neoplasm of upper lobe, right bronchus or lung (principal); R60.0 Localized edema; I87.1 Compression of vein; I82.491 Acute embolism and thrombosis of other specified deep vein of right lower extremity

== ENCOUNTER 2019-04-12 15:44 | Emergency (ER) | payer BC ==
[2019-04-12 16:35] LABS: #Eosinphils 0.1 thou/uL (0.0-0.7); #Lymphocytes 0.4 thou/uL (1.20-3.40); #Monocytes 1.2 thou/uL (0.11-0.59); #Neutrophils 8.6 thou/uL (1.40-6.50); %Basophils 0.2 % (0.0-1.0); %Eosinophils 0.9 % (0.0-10.0); %Lymphocytes 3.6 % (21.0-51.0); %Monocytes 11.5 % (0.0-10.0); %Neutrophils 83.8 % (42.0-75.0); Hemoglobin 9.6 g/dL (14.0-18.0); Mean Corpuscular HGB CONC 34.7 g/dL (32.0-36.0); Mean Corpuscular Volume 92.2 fL (78.0-98.0); Mean Platelet Volume 5.2 fL (7.4-10.4); Platelet Count 484 thou/uL (130-400); RBC Distribution Width 15.8 % (11.5-14.5); Red Blood Cell (RBC) Count 2.99 mill/uL (4.70-6.10); White Blood Cell (WBC) Count 10.3 thou/uL (4.8-10.8)
[2019-04-12 16:55] LABS: ALT (SGPT) 34 U/L (8-55); AST (SGOT) 15 U/L (5-34); Albumin 3.7 g/dL (3.5-5.0); Alkaline Phosphatase 99 U/L (40-110); Anion Gap 13 mmol/L (10-20); BUN (Urea Nitrogen) 11 mg/dL (8.4-25.7); Bilirubin, Total 0.5 mg/dL (0.2-1.2); Calc. Creatinine Clearance 0 mL/min (70-130); Calcium 9.2 mg/dL (7.8-10.44); Carbon Dioxide 29 mmol/L (22-29); Chloride 88 mmol/L (98-107); Estimated GFR-MDRD Greater than 90; Globulin 3.6 g/dL (2.4-3.5); Glucose 123 mg/dL (70-105); Potassium 4.5 mmol/L (3.5-5.1); Protein, Total 7.3 g/dL (6.0-8.3); Sodium 125 mmol/L (136-145)
--- NOTE | 2019-04-12 17:18 | RAD ---
Exam: Chest one view HISTORY:Dyspnea. History of lung cancer Comparison: 02/16/2019 FINDINGS: Lungs: Right perihilar/suprahilar opacity is again demonstrated. Elevation of right hemidiaphragm is stable. Cardiac silhouette:Stable in appearance Pulmonary vessels: Mild prominence bilaterally Pleural Spaces: Clear Pneumothorax: None Osseous abnormalities: None of acuity. IMPRESSION: Persistent right perihilar/suprahilar masslike opacity. Volume loss of right lung with elevation of right hemidiaphragm.
[2019-04-12 17:56] LABS: INR-International Normal Ratio 1.2; PTT 43.4 SEC (22.9-36.1); Prothrombin Time 14.9 SEC (12.0-14.7)
== END 2019-04-12 18:33 | disposition home or self-care (01) ==
LOC: ERS 15:44
DX: J44.1 Chronic obstructive pulmonary disease with (acute) exacerbation (principal); J70.0 Acute pulmonary manifestations due to radiation; Z87.891 Personal history of nicotine dependence; Z79.899 Other long term (current) drug therapy
CPT/HCPCS: 71045; 80053; 83605; 83880; 85025; 85610; 85730; 94640; 96360; J7620